=== PATIENT | female | born 1950 | race Caucasian/White ===

== ENCOUNTER 2018-09-11 11:52 | Day surgery (SDC) | payer BC, SELFPAY ==
[2018-09-11 12:06] VITALS: BP 115/67; PULSE 63; RESP 16; TEMP 37.2; O2SAT 98
[2018-09-11] MEDS: Lidocaine 2% Multi-Dose 50 ML VIAL (12:56)
--- NOTE | 2018-09-11 13:13 | W.PM.DSUDISC ---
Discharge Plan Disposition Patient Disposition: HOME Condition: Improving Discharge Details Reason For Visit: (L) RING TRIGGER FINGER Attending Provider: Javier Estrada Primary Care Provider: Karla Ricardo Home Meds and New Rx's Prescriptions: No Action ibuprofen 600 mg tablet 600 mg PO TID PRN (Reason: pain) Qty: 30 RF: 0 flaxseed oil 1,000 MG capsule 1,000 mg PO DAILY RF: 0 lactobacillus combo no.11 [Probiotic] 1 EACH capsule, sprinkle 1 ea PO BID RF: 0 penciclovir [Denavir] 1.5 GM cream 1 film Topical Q2H Qty: 1 RF: 1 Faye Plus 1 PO DAILY RF: 0 cranberry fruit 500 MG tablet,chewable 500 mg PO DAILY RF: 0 asjsjnajo-icnfpydr-eqh-hyalur [Joint Health] 1 EACH tablet 1 ea PO DAILY RF: 0 lorazepam 0.5 MG tablet 0.5 mg PO DAILY PRNQty: 30 RF: 1 gqoqq-ur-0-yoa-fbv-xvoipup-ast [krill oil] 1 EACH capsule 1 ea PO DAILY RF: 0 multivitamin [Daily Multi-Vitamin] 1 EACH tablet 1 ea PO DAILY RF: 0 fseswrjzsqxr-kfdf-cnt C-B.coag [Azo Urinary Tract Health] 1 EACH tablet 1 ea PO DAILY RF: 0 Discharge Instructions Additional Instructions: KEEP YOUR LEFT HAND ELEVATED ABOVE HEART LEVEL NEEDED TO HELP CONTROL PAIN AND SWELLING. EXERCISE YOUR FINGERS COMFORT ALLOWS. EXPECT A SMALL AMOUNT OF BLOODY DRAINAGE ON THE GAUZE BANDAGES. FOR SHOWERING TOMORROW, COVER YOUR HAND WITH A PLASTIC BAG AND A RUBBER BAND ABOUT THE FOREARM TO KEEP THE BANDAGES DRY. ON 09/23/18, YOU MAY REMOVE ALL OF YOUR BANDAGES AND GET YOUR INCISION WET IN THE SHOWER WITH SOAP AND WATER. GENTLY PAT THE STITCH DRY AND COVER YOUR WOUND WITH A BANDAID. RESUME NORMAL TOLERATED. TAKE TYLENOL, ADVIL OR ALEVE FOR ANY DISCOMFORT. FOLLOW-UP WITH DR. ESTRADA IN 1 WEEK FOR STITCH REMOVAL. Activity:: Elevate Remove Dressings/Wound Care:: 48 hours Shower/Bathe:: 48 hours Diet:: As Tolerated Discharge Orders Discharge Orders: Discharge Order (Routine); Ordered 09/11/18 Ordered By: Javier Estrada
--- NOTE | 2018-09-11 13:23 | PDOC.DSDIS_ITS ---
Discharge Plan Disposition Patient Disposition: HOME Condition: Improving Discharge Details Reason For Visit: (L) RING TRIGGER FINGER Attending Provider: Javier Estrada Primary Care Provider: Karla Ricardo Home Meds and New Rx's Prescriptions: No Action ibuprofen 600 mg tablet 600 mg PO TID PRN (Reason: pain) Qty: 30 RF: 0 flaxseed oil 1,000 MG capsule 1,000 mg PO DAILY RF: 0 lactobacillus combo no.11 [Probiotic] 1 EACH capsule, sprinkle 1 ea PO BID RF: 0 penciclovir [Denavir] 1.5 GM cream 1 film Topical Q2H Qty: 1 RF: 1 Faye Plus 1 PO DAILY RF: 0 cranberry fruit 500 MG tablet,chewable 500 mg PO DAILY RF: 0 npzjcywja-ohgwhlwz-bxd-hyalur [Joint Health] 1 EACH tablet 1 ea PO DAILY RF: 0 lorazepam 0.5 MG tablet 0.5 mg PO DAILY PRNQty: 30 RF: 1 trfzj-dj-8-cte-iew-grtzzpe-ast [krill oil] 1 EACH capsule 1 ea PO DAILY RF: 0 multivitamin [Daily Multi-Vitamin] 1 EACH tablet 1 ea PO DAILY RF: 0 fthamcgkvifr-dbsq-xio C-B.coag [Azo Urinary Tract Health] 1 EACH tablet 1 ea PO DAILY RF: 0 Discharge Instructions Additional Instructions: KEEP YOUR LEFT HAND ELEVATED ABOVE HEART LEVEL NEEDED TO HELP CONTROL PAIN AND SWELLING. EXERCISE YOUR FINGERS COMFORT ALLOWS. EXPECT A SMALL AMOUNT OF BLOODY DRAINAGE ON THE GAUZE BANDAGES. FOR SHOWERING TOMORROW, COVER YOUR HAND WITH A PLASTIC BAG AND A RUBBER BAND ABOUT THE FOREARM TO KEEP THE BANDAGES DRY. ON 09/23/18, YOU MAY REMOVE ALL OF YOUR BANDAGES AND GET YOUR INCISION WET IN THE SHOWER WITH SOAP AND WATER. GENTLY PAT THE STITCH DRY AND COVER YOUR WOUND WITH A BANDAID. RESUME NORMAL TOLERATED. TAKE TYLENOL, ADVIL OR ALEVE FOR ANY DISCOMFORT. FOLLOW-UP WITH DR. ESTRADA IN 1 WEEK FOR STITCH REMOVAL. Activity:: Elevate Remove Dressings/Wound Care:: 48 hours Shower/Bathe:: 48 hours Diet:: As Tolerated Discharge Orders Discharge Orders: Discharge Order (Routine); Ordered 09/11/18 Ordered By: Javier Estrada
--- NOTE | 2018-09-11 15:03 | ROE_ITS ---
DATE OF PROCEDURE: September 11, 2018 PREOPERATIVE DIAGNOSIS: Trigger finger left ring finger. POSTOPERATIVE DIAGNOSIS: Same. PROCEDURE: Release A-1 mateo left ring finger. SURGEON: Javier Bruce M.D. ASSEMBLER GOLD FRAME: Nurse. ANESTHETIC: 2% Lidocaine plain. PREP: ChloraPrep. INDICATIONS: This patient has her third trigger finger over the last several years. It's been quite disabling to her. She'll often awaken with the left ring finger stuck in her palm. She was anxious to have it corrected. I saw the patient in the Day Surgery holding area and reviewed the pathophysi ology with her. I confirmed that the ring finger was indeed triggering. She was quite tender over t he A-1 mateo. She had no deformity at the PIP joint to suggest associated arthritis. PROCEDURE DESCRIPTION: The patient was taken to the operating suite. Her left arm was prepped with ChloraPrep. Sterile drapes were applied. 2% Lidocaine was then used to create and anesthetic wheal over the MCP joint region. After ensuring adequate anesthesia, I made a transverse incision over the A-1 mateo. Loupe magnification was utilized. Blunt dissection was used to expose the flexor tendo n sheath. A 15 scalpel blade was then used to enter the sheath. A small amount of synovial fluid wa s encountered. The incision was then extended proximally to achieve a complete release. I then had the patient flex and extend her ring finger and she could do so fully without any catching, triggerin g or pain. The wound was then irrigated and the skin closed with a single suture of #5-0 Ethilon in a horizontal mattress fashion. Sterile bandages were applied consisting of Xeroform gauze 4x4's and a 3-inch conforming gauze bandage. The patient was taken to the recovery room in satisfactory condit ion, tolerating the procedure well.
== END 2018-09-11 13:42 | disposition home or self-care (01) ==
PROVIDERS: PCP Nurse Practitioner Adult Health; Visit Provider Orthopaedic Surgery
PROC: (CPT 26055; principal; 2018-09-11 13:00)
DX: M65.342 Trigger finger, left ring finger (principal); K21.9 Gastro-esophageal reflux disease without esophagitis
CPT/HCPCS: 26055

== ENCOUNTER 2019-02-03 09:39 | Observation (INO) | payer BC, SELFPAY ==
[2019-02-03] VITALS (23 sets, daily range): BP systolic 96–165; BP diastolic 57–96; PULSE 61–112; RESP 12–19; TEMP 36.4–37.4; O2SAT 96–100
--- NOTE | 2019-02-03 09:52 | NUR.NOTE ---
pt developed right sided abdominal pain last night 04/15 pt staes that pain is made worse by moment
--- NOTE | 2019-02-03 09:59 | DI.CT_ITS ---
SYMPTOMS/DIAGNOSIS: RLQ PAIN, ? APPENDICITIS/ACUTE PROCESS ABDOMINAL AND PELVIC CT: CT examination of the abdomen and pelvis was performed with a bolus infusion of 100 cc's of Omnipaque 350. Images obtained through the lung bases are unremarkable except for apparent bronchiectasis of the right lung base. There are vascular clips in the gallbladder fossa consistent with prior cholecystectomy. The liver, spleen and pancreas appear normal and no biliary dilatation is seen. The adrenals and kidneys are unremarkable. The abdominal aorta is of normal diameter and no major vascular abnormality is seen. No abdominal wall hernia seen. No abdominal or pelvic adenopathy seen. The SETUP TECHNICIAN structures appear intact. Note is made of a marked distended thick walled appendix with marked associated fat edema and fluid in the pericolic gutter consistent with acute retrocecal appendicitis. No gross evidence of perforation or abscess formation. CONCLUSION: Findings consistent with acute retrocecal appendicitis without evidence of abscess or perforation.
--- NOTE | 2019-02-03 10:02 | W.ED.GENAD ---
Discharge Plan Disposition Patient Disposition: [facility] INPATIENT Condition: Stable Discharge Details Chief Complaint: Abd Prob Clinical Impression: Acute appendicitis Primary Care Provider: Libertad Seo ED Provider: Marcell Pate Home Meds and New Rx's Prescriptions: No Action flaxseed oil 1,000 MG capsule 1,000 mg PO DAILY RF: 0 Probiotic 1 EACH capsule, sprinkle 1 ea PO BID RF: 0 Denavir 1.5 GM cream 1 film Topical Q2H Qty: 1 RF: 1 Faye Plus 1 PO DAILY RF: 0 cranberry fruit 500 MG tablet,chewable 500 mg PO DAILY RF: 0 Joint Health 1 EACH tablet 1 ea PO DAILY RF: 0 lorazepam 0.5 MG tablet 0.5 mg PO DAILY PRNQty: 30 RF: 1 blxho-rd-9-hbf-kun-cchtfhi-ast [krill oil] 1 EACH capsule 1 ea PO DAILY RF: 0 multivitamin [Daily Multi-Vitamin] 1 EACH tablet 1 ea PO DAILY RF: 0 Azo Urinary Tract Health 1 EACH tablet 1 ea PO DAILY RF: 0 Medical Decision Making This is a pleasant 68-year-old female with no significant past medical history except for cholecystectomy who presents for right lower abdominal pain starting last night, sharp in nature, relatively constant in consistency. She has had no associated symptoms of vomiting or diarrhea but has had mild nausea. Last meal was last night. Physical exam demonstrates notable reproducible right lower quadrant tenderness, as well as right CVA tenderness. She does have a mild rash over the right mid abdominal region, it is linear and erythematous, no vesicles, discharge, scabs, or signs or symptoms consistent with shingles. It is in the location of where her heating pad it was last night. With no clinical consistency reflecting shingles, and an exam consistent with mild burn from a heating pad, I do not think that this is the cause of her symptoms. Due to the concerning right lower quadrant abdominal pain we will get CT to rule out an acute abdominal process including appendicitis, as well as urinalysis to evaluate for infection or kidney stone. We will rehydrate, treat the patient's pain nausea, and reassess. 11:[address] scan results have returned showing evidence of acute appendicitis, questionable perforation. We have contacted Dr. Jain discussed the case with her. She will come and assessed the patient for further surgical management. Patient's pain remains controlled, vital signs are stable. 12:13 PM Apolinar has seen and assessed the patient. She agrees and the need for emergent surgery. Patient will be transferred to the OR for definitive surgical management. We have been requested to start Zosyn, 4.5 mg have been started I have extensively reviewed the treatment plan with the patient. I have addressed all patient concerns at this time. I have also discussed the plan with the admitting physician and they agree with the current assessment and plan and have agreed to assume responsibility for the patient. All parties demonstrate verbal understanding and agreement with our assessment and plan at this time. FINDINGS: Lower thorax: No acute findings. ABDOMEN: Liver: Normal. No mass. Gallbladder and bile ducts: Surgical clips in the gallbladder fossa consistent with cholecystectomy. Pancreas: Normal. No ductal dilation. Spleen: One or more accessory splenules. Adrenals: Normal. No mass. Kidneys and ureters: Normal. No hydronephrosis. Stomach and bowel: Normal. No obstruction. No mucosal thickening. Appendix: Severe retrocecal appendicitis without abscess or pneumoperitoneum. Mild nonspecific fluid in the region of the retrocecal appendix is consistent with inflammatory fluid versus occult perforation of the appendix. PELVIS: Bladder: Unremarkable as visualized. Reproductive: Unremarkable as visualized. ABDOMEN and PELVIS: Intraperitoneal space: Normal. No free air. No significant fluid collection. Bones/joints: No acute fracture. No dislocation. Soft tissues: Unremarkable. Vasculature: One or more calcified pelvic phleboliths. Calcification of the abdominal aorta and/or iliac arteries consistent with atherosclerotic vessel disease. Lymph nodes: Normal. No enlarged lymph nodes. IMPRESSION: 1. Severe retrocecal appendicitis without abscess or pneumoperitoneum. 2. Mild nonspecific fluid in the region of the retrocecal appendix is consistent with inflammatory fluid versus occult perforation of the appendix. Thank you for allowing us to participate in the care of your patient. Dictated and Authenticated by: Yousif Bennett MD 02/03/2019 11:25 AM Eastern Time ([place] & [place]) . HPI General Date/Time Provider Initiated Documentation: 02/03/19 09:52. HPI Narrative: This is a very pleasant 68-year-old female with no significant past medical history with a past surgical history of cholecystectomy who presents today for evaluation of right lower quadrant abdominal pain. Patient states that started last night. It is sharp in nature and constant in consistency. It is worse with movement and palpation. Last time she ate was yesterday afternoon. She denies any vomiting but does admit to nausea. She denies any change in bowel movements or diarrhea. She denies any hematochezia, melena, acholic stool, hematemesis, hematuria, increased urinary frequency, fever or chills, chest pain, shortness of breath, numbness, tingling, weakness, headache vision changes or drooling. She denies any history of previous symptoms like this. Patient denies any other modifying factors. No other complaints at this time. No other sick contacts. She denies any IV or illicit drug use. She denies any pertinent family history. The patient also does note the presence of a small linear rash on her right abdomen, however this was the same location as her heating pad last night. She denies any itching, burning, scabbing, or vesicles or drainage in the skin. Related Data Home Medications Medication Instructions Recorded Confirmed Probiotic 1 ea PO BID cap.sprink 11/25/15 02/03/19 flaxseed oil 1,000 mg PO DAILY 11/25/15 02/03/19 Denavir 1 film TOPICAL Q2H #1 tube 01/08/16 02/03/19 Faye Plus 1 PO DAILY 05/24/16 01/01/19 Joint Health 1 ea PO DAILY 02/13/17 02/03/19 cranberry fruit 500 mg PO DAILY tab.chew 02/13/17 02/03/19 lorazepam 0.5 mg PO DAILY PRN #30 tab 06/12/17 02/03/19 sikjt-lh-7-hxn-hfj-pduupma-ast 1 ea PO DAILY 02/09/18 02/03/19 [Krill Oil 1,000 Mg Softgel] multivitamin [Multi-Vitamin Daily] 1 ea PO DAILY 02/09/18 02/03/19 niawjorwoqrv-cekb-rxm C-B.coag 1 ea PO DAILY 04/12/18 02/03/19 [Azo Urinary Tract Health Pack] Allergies Allergy/AdvReac Type Severity Reaction Status Date / Time No Known Drug Allergies Allergy Verified 02/03/19 09:56 General Stated Complaint: Abd Prob FLORENTINO: 3 Review of Systems Review of Systems All systems reviewed & are unremarkable except as noted in HPI and below PFSH Medical History Family history of diabetes mellitus (Chronic) Osteopenia determined by x-ray (Chronic 01/01/18) Oral herpes (Chronic) Mass of soft palate (Resolved 06/11/15) Hyperlipidemia (Chronic 04/18/12) Family history of colon cancer (Chronic 11/25/15) Decreased GFR (Chronic 01/13/16) Anxiety (Chronic 08/14/14) Surgical History section (Resolved) Cholecystectomy (Resolved ~2008) Colonoscopy - IV Sedation (Resolved 06/13/17) Dilation and curettage (Resolved ~01/2018) L oropharynx mass biosy (Resolved 08/13/15) R elbow surgery (Resolved) Repair, Rotator Cuff (Resolved) TRIGGER FINGER RELEASE (Resolved 01/12/16) Trigger Finger release (Resolved 03/30/07) Social History Smoking/Tobacco Use Status: Never Alcohol Intake: current Alcohol Intake frequency: a few times a week Alcohol type: wine Drug use: Never 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 3.ENT: Atraumatic external nose and ears. Moist MM. Neck: Symmetric, trachea midline, No thyromegaly. 4.CVS: +S1/S2, No murmurs or gallops. Peripheral pulses 2+ and equal in all extremities. Brisk capillary refill in all extremities. 5.RESP: Unlabored respiratory effort. Clear to auscultation bilaterally. No wheezes rales or rhonchi 6.GI: Soft, nondistended, no organomegaly. Notable tenderness in the right lower abdominal quadrant, with some radiation towards the right upper abdominal quadrant. Negative obturator and psoas sign. Positive right CVA tenderness. Negative heel strike test. Notable pain at McBurney's point, negative Waters sign. 7.MSK: Normocephalic/Atraumatic, Extremities w/o deformity or ttp No cyanosis or clubbing, Normal movement of all extremities 8.Skin: Warm, Dry. There is evidence of a mild linear red rash on the patient's right mid abdominal quadrant, this is the location of her heating pad last night. She denies any itching, burning, or pain sensation. No evidence of vesicles. Negative Nikolsky sign. 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 Sensation grossly intact, no focal neurologic deficits. 10.Psych: (AAO) x3. Appropriate mood and affect Course Vital Signs Temperature 37.2 C 02/03/19 09:53 Pulse 90 02/03/19 09:53 Respiratory Rate 18 02/03/19 09:53 Blood Pressure 145/57 H 02/03/19 09:53 Pulse Oximetry 97 02/03/19 09:53 Temperature 37.2 C 02/03/19 09:53 Temperature Source Skin 02/03/19 09:53 Pulse 90 02/03/19 09:53 Respiratory Rate 18 02/03/19 09:53 Respiratory Effort 02/03/19 10:00 Blood Pressure 145/57 H 02/03/19 09:53 Blood Pressure Position Sitting 02/03/19 09:53 Pulse Oximetry 97 02/03/19 09:53 Oxygen Delivery Method Room Air 02/03/19 09:53 Oxygen Flow Rate 0 02/03/19 09:53 Pain Level 6 02/03/19 09:53
[2019-02-03 10:29] LABS: Abs Immature Grans 0.03 k/cumm (0.0-0.09); Absolute Eosinophil Count 0.01 k/cumm (0.0-0.7); Basophils % 0.1; Eosinophils % 0.1; HCT 41.5 % (36.0-46.0); HGB 14.1 g/dL (12.0-15.5); Immature Grans % 0.2; Lymphocytes % 5.5; Mean Corpuscular Volume 91.2 fL (80-95); Mean Platelet Volume 10.9 fL (8.0-11.0); Monocytes % 8.3; Neutrophils % 85.8; Platelet Count 178 x1000/uL (130-400); RBC 4.55 m/cumm (4.00-5.20); RBC Distribution Width 12.7 % (11.7-14.6); White Blood Cell Count 13.55 k/cumm (4.4-10.8)
[2019-02-03 10:32] LABS: Absolute Basophil Count 0.01 k/cumm (0.0-0.2); Absolute Lymphocyte Count 0.75 k/cumm (1.2-3.4); Absolute Monocyte Count 1.12 k/cumm (0.11-0.7); Absolute Neutrophil Count 11.63 k/cumm (1.2-6.7)
[2019-02-03 10:36] LABS: Lipase 253 U/L (73-393)
[2019-02-03 10:36] LABS: Bilirubin Negative (Negative); Blood Negative (Negative); Clarity Sl Cloudy; Glucose Negative (Negative); Ketones Negative (Negative); Leukocyte Esterase Negative (Negative); Nitrite Negative (Negative); Specific Gravity 1.015 (1.005-1.025); Urobilinogen 0.2 EU/dL (Up TO 0.2); pH 8.5 (5-8)
[2019-02-03 10:42] LABS: ALT 24 U/L (12-78); AST 17 U/L (15-37); Albumin 3.9 g/dL (3.4-5.0); Alkaline Phosphatase 80 U/L (46-116); BUN 18 mg/dL (7-18); Bilirubin, Total 0.6 mg/dL (0.2-1.0); CREATININE 0.99 mg/dL (0.55-1.02); Calcium 9.4 mg/dL (8.5-10.1); Chloride 104 mmol/L (98-107); Estimated GFR 56.12 (mL/min/1.73m2); Glucose 123 mg/dL (70-100); Potassium 4.3 mmol/L (3.5-5.1); Sodium 143 mmol/L (136-145); Total Protein 7.5 g/dL (6.4-8.2)
[2019-02-03] MEDS: Ondansetron 4 MG/2 ML VIAL IVP (10:49)
[2019-02-03] MEDS: MORPHine 10 MG/ML VIAL 4 MG IVP (10:49)
[2019-02-03] MEDS: Normal Saline 1,000 ML 1000 ML IV (10:49)
[2019-02-03] MEDS: Omnipaque 350 MG/ML 100 ML BTL IJ (11:03)
--- NOTE | 2019-02-03 11:25 | DI.VRAD_ITS ---
Addendum created by Yousif Bennett MD on 02/03/2019 11:27:32 AM EDT THIS REPORT CONTAINS FINDINGS THAT MAY BE CRITICAL TO PATIENT CARE. The findings were verbally communicated via telephone conference with JACK GAYLE at 11:27 AM EDT on 02/03/2019. The findings were acknowledged and understood. Initial report created on 02/03/2019 11:25:16 AM EDT EXAM: CT Abdomen and Pelvis With Contrast EXAM DATE/TIME: 02/03/2019 10:02 AM CLINICAL HISTORY: 68 years old, female; Pain; Abdominal pain; Prior surgery; Surgery type: Cholycectomy, TECHNIQUE: Imaging protocol: Axial computed tomography images of the abdomen and pelvis with intravenous contrast. Coronal and sagittal reformatted images were created and reviewed. COMPARISON: US PELVIS TRANSVAG 01/13/2017 5:38 PM FINDINGS: Lower thorax: No acute findings. ABDOMEN: Liver: Normal. No mass. Gallbladder and bile ducts: Surgical clips in the gallbladder fossa consistent with cholecystectomy. Pancreas: Normal. No ductal dilation. Spleen: One or more accessory splenules. Adrenals: Normal. No mass. Kidneys and ureters: Normal. No hydronephrosis. Stomach and bowel: Normal. No obstruction. No mucosal thickening. Appendix: Severe retrocecal appendicitis without abscess or pneumoperitoneum. Mild nonspecific fluid in the region of the retrocecal appendix is consistent with inflammatory fluid versus occult perforation of the appendix. PELVIS: Bladder: Unremarkable as visualized. Reproductive: Unremarkable as visualized. ABDOMEN and PELVIS: Intraperitoneal space: Normal. No free air. No significant fluid collection. Bones/joints: No acute fracture. No dislocation. Soft tissues: Unremarkable. Vasculature: One or more calcified pelvic phleboliths. Calcification of the abdominal aorta and/or iliac arteries consistent with atherosclerotic vessel disease. Lymph nodes: Normal. No enlarged lymph nodes. IMPRESSION: 1. Severe retrocecal appendicitis without abscess or pneumoperitoneum. 2. Mild nonspecific fluid in the region of the retrocecal appendix is consistent with inflammatory fluid versus occult perforation of the appendix. Dictated and Authenticated by: Yousif Bennett MD. Ordering:MINI Faith MD
--- NOTE | 2019-02-03 12:13 | W.PM.HP.N ---
Date of service: 02/03/19 Time of Service: 12:14 Assessment and Plan (1) Acute appendicitis: Current visit: Yes Status: Acute A\\ Acute appendicitis P\\ Laparoscopic Appendectomy possible open Risks, benefits and complications have been reviewed. Complications include but are not limited to bleeding, infection, abscess, injury to adjacent organs, missed injury, leak from the staple line, inability to complete the operation open and adverse reaction to the medications. Questions were entertained and answered to her satisfaction and she wished to proceed. No guarantees were given or implied. Qualifiers: Acute appendicitis type: with localized peritonitis Appendicitis gangrene presence: without gangrene Appendicitis perforation presence: without perforation History of Present Illness Chief Complaint: Abdominal pain Consults Consult date: 02/03/19 Requesting physician: Marcell Pate Narrative: This is a pleasant 68-year-old female with no significant past medical history except for cholecystectomy and who presented to the ER with right lower abdominal pain starting last night, sharp in nature, relatively constant in consistency. She has had no associated symptoms of vomiting or diarrhea but has had mild nausea. Last meal was last night. She had a few sips of Tonja Elvia this morning and a few sips of coffee. She denies any sick contacts. CT scan done in the ER revealed enlarged retrocecal appendix with fluid. ? small perforation. ABDOMEN: Liver: Normal. No mass. Gallbladder and bile ducts: Surgical clips in the gallbladder fossa consistent with cholecystectomy. Pancreas: Normal. No ductal dilation. Spleen: One or more accessory splenules. Adrenals: Normal. No mass. Kidneys and ureters: Normal. No hydronephrosis. Stomach and bowel: Normal. No obstruction. No mucosal thickening. Appendix: Severe retrocecal appendicitis without abscess or pneumoperitoneum. Mild nonspecific fluid in the region of the retrocecal appendix is consistent with inflammatory fluid versus occult perforation of the appendix. PELVIS: Bladder: Unremarkable as visualized. Reproductive: Unremarkable as visualized. ABDOMEN and PELVIS: Intraperitoneal space: Normal. No free air. No significant fluid collection. Bones/joints: No acute fracture. No dislocation. Soft tissues: Unremarkable. Vasculature: One or more calcified pelvic phleboliths. Calcification of the abdominal aorta and/or iliac arteries consistent with atherosclerotic vessel disease. Lymph nodes: Normal. No enlarged lymph nodes. IMPRESSION: 1. Severe retrocecal appendicitis without abscess or pneumoperitoneum. 2. Mild nonspecific fluid in the region of the retrocecal appendix is consistent with inflammatory fluid versus occult perforation of the appendix. Review of Systems Constitutional Denies fever(s) and Reports poor appetite Cardiovascular Denies chest pain, Denies chest pain at rest, Denies irregular heart rhythm, Denies palpitations, Denies dyspnea and Denies dyspnea on exertion Respiratory Denies cough, Denies dyspnea and Denies dyspnea on exertion Gastrointestinal Reports as per HPI Genitourinary Denies hematuria and Denies dysuria Endocrine Denies palpitations Hematologic/Lymphatic Denies easy bleeding and Denies easy bruising PFSH Medical History Family history of diabetes mellitus (Chronic) Osteopenia determined by x-ray (Chronic 01/01/18) Oral herpes (Chronic) Mass of soft palate (Resolved 06/11/15) Hyperlipidemia (Chronic 04/18/12) Family history of colon cancer (Chronic 11/25/15) Decreased GFR (Chronic 01/13/16) Anxiety (Chronic 08/14/14) Surgical History section (Resolved) Cholecystectomy (Resolved ~2008) Colonoscopy - IV Sedation (Resolved 06/13/17) Dilation and curettage (Resolved ~01/2018) L oropharynx mass biosy (Resolved 08/13/15) R elbow surgery (Resolved) Repair, Rotator Cuff (Resolved) TRIGGER FINGER RELEASE (Resolved 01/12/16) Trigger Finger release (Resolved 03/30/07) Social History Smoking/Tobacco Use Status: Never Alcohol Intake: current Alcohol Intake frequency: a few times a week Alcohol type: wine Drug use: Never 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[employer] Procedure Working smoke detector in home: Yes Fire extinguisher in home: Yes Carbon monox detector in home: Yes Do you feel safe at home: Yes Do you feel safe in your relationship?: Yes History History 2 Para Hx # Term Pregnancies Multiple births Hx # Pregnancies Ectopic pregnancies AB induced Hx Number of Living Children 2 AB spontaneous Meds Home Medications Medication Instructions Recorded Confirmed Type Probiotic 1 ea PO BID cap.sprink 11/25/15 02/03/19 History flaxseed oil 1,000 mg PO DAILY 11/25/15 02/03/19 History Denavir 1 film TOPICAL Q2H #1 tube 01/08/16 02/03/19 History Faye Plus 1 PO DAILY 05/24/16 01/01/19 History Joint Health 1 ea PO DAILY 02/13/17 02/03/19 History cranberry fruit 500 mg PO DAILY tab.chew 02/13/17 02/03/19 History lorazepam 0.5 mg PO DAILY PRN #30 tab 06/12/17 02/03/19 History lmsef-hr-8-wrl-isd-cavdqkg-ast 1 ea PO DAILY 02/09/18 02/03/19 History [Krill Oil 1,000 Mg Softgel] multivitamin [Multi-Vitamin Daily] 1 ea PO DAILY 02/09/18 02/03/19 History vczsaxppqtiy-vfro-xni C-B.coag 1 ea PO DAILY 04/12/18 02/03/19 History [Azo Urinary Tract Health Pack] Allergies Allergy/AdvReac Type Severity Reaction Status Date / Time No Known Drug Allergies Allergy Verified 02/03/19 09:56 Exam HENMT Head: normocephalic and atraumatic Eyes Pupils: PERRL Resp Effort & Inspection: normal respiratory effort Auscultation: clear to auscultation bilaterally Cardio Rate: regular rate Rhythm: regular rhythm Heart Sounds: no click, no gallops and no murmurs GI Inspection: normal to inspection Palpation: soft, no hepatosplenomegaly and tender in the RLQ (+guarding, no rebound) Auscultation: normal bowel sounds Results Labs : 02/03/19 10:16 02/03/19 10:16 Laboratory Results - last 24 hr 02/03/19 02/03/19 02/03/19 10:16 10:16 10:16 WBC 13.55 H RBC 4.55 Hgb 14.1 Hct 41.5 MCV 91.2 MCH 31.0 MCHC 34.0 RDW 12.7 Plt Count 178 MPV 10.9 Immature Gran % 0.2 Neutrophils % 85.8 Lymphocytes % 5.5 Monocytes % 8.3 Eosinophils % 0.1 Basophils % 0.1 Absolute Neutrophils 11.63 H Absolute Lymphocytes 0.75 L Absolute Monocytes 1.12 H Absolute Eosinophils 0.01 Absolute Basophils 0.01 Sodium 143 Potassium 4.3 Chloride 104 Carbon Dioxide 29.0 Anion Gap 10.0 BUN 18 Creatinine 0.99 Estimated GFR/1.73 m2 56.12 Glucose 123 H Calcium 9.4 Total Bilirubin 0.6 AST 17 ALT 24 Alkaline Phosphatase 80 Total Protein 7.5 Albumin 3.9 Lipase 253 Urine Color Urine Clarity Urine pH Ur Specific [place] Urine Protein Urine Ketones Urine Blood Urine Nitrite Urine Bilirubin Urine Urobilinogen Ur Leukocyte Esterase Urine Glucose 02/03/19 10:27 WBC RBC Hgb Hct MCV MCH MCHC RDW Plt Count MPV Immature Gran % Neutrophils % Lymphocytes % Monocytes % Eosinophils % Basophils % Absolute Neutrophils Absolute Lymphocytes Absolute Monocytes Absolute Eosinophils Absolute Basophils Sodium Potassium Chloride Carbon Dioxide Anion Gap BUN Creatinine Estimated GFR/1.73 m2 Glucose Calcium Total Bilirubin AST ALT Alkaline Phosphatase Total Protein Albumin Lipase Urine Color Yellow Urine Clarity Sl cloudy Urine pH 8.5 H Ur Specific [place] 1.015 Urine Protein Negative Urine Ketones Negative Urine Blood Negative Urine Nitrite Negative Urine Bilirubin Negative Urine Urobilinogen 0.2 Ur Leukocyte Esterase Negative Urine Glucose Negative Last Vital Signs Temp 99.0 F 02/03/19 09:53 Pulse 90 02/03/19 09:53 Resp 18 02/03/19 09:53 BP 145/57 H 02/03/19 09:53 Pulse Ox 97 02/03/19 09:53
[2019-02-03] MEDS: Lactated Ringers 1,000 ML 75 ML IV (13:11)
--- NOTE | 2019-02-03 13:11 | ROE_ITS ---
Date of service: 02/03/19 Time of Service: 13:59 Operative Note DATE OF PROCEDURE: 02/03/19 PRE-OP DIAGNOSIS: Acute appendicitis POST-OP DIAGNOSIS: same PROCEDURE: Laparoscopic Appendectomy SURGEON: Diamond Torres BALLING HEAD TENDER: Pj Cook ANESTHESIA: USAMAA (Aleyda Flores, COSTUME TECHNICIAN/ ASA 2E) ESTIMATED BLOOD LOSS: 50 PATHOLOGY: other (Appendix) COMPLICATIONS: None Patient was transported to: PACU Patient's condition: stable Implants: None Indications: Ms. Maza is a pleasant 68-year-old female who started having abdominal pain yesterday evening. This morning she could not stand the pain anymore and came to the emergency department. Workup in the emergency department showed a slightly increased white count of 13,000 and a CAT scan revealed an enlarged appendix with inflammatory changes as well as some nonspecific fluid within the abdomen concerning for may be a microperforation. Risks, benefits, complications were reviewed with the patient and she wished to proceed. No guarantees were given or implied. Findings: Acute appendicitis with serous fluid within the abdomen no signs of microperforation. There were also adhesions of the omentum noted to the old C- section scar. Procedure Description: After informed consent was obtained the patient was taken to the operating room placed in the supine position SCDs were applied as well as monitors. A timeout was done. The patient was then placed under general anesthesia and intubated without any difficulty. Next a Cooley catheter was placed in a standard surgical fashion. At this point the abdomen was prepped and draped in a sterile surgical fashion with chlorhexidine. A second timeout was done and the patient's name, date of , operation to be performed, DVT prophylaxis, antibiotic given, and fire risk was assessed. Percent lidocaine was mixed 50-50 with Marcaine with epinephrine. The mixture was injected into the dermis just above the umbilicus. A small 5 mm incision was made with an 11 blade. The skin was grasped with penetrating towel clamps on either side of the incision and then using a Visiport a 5 mm port was placed under direct visualization into the abdomen. The abdomen was insufflated and adhesions of omentum up to the abdominal wall along the old scar were identified. Local anesthetic was then injected just above the pubic symphysis just to the right of midline. A small 5 mm incision was made with an 11 blade and another 5 mm port was placed under direct visualization into the abdomen. The local anesthetic was then injected in the right upper quadrant area and a 10 mm incision was made with an 11 blade. A 11 mm port was then placed under direct visualization. The patient's bed was then turned to the left head down allowing me to sweep of the small bowel out of the right lower quadrant. The cecum was gently grasped and the appendix was identified. The appendix was grasped at the tip and pulled up allowing me to visualize the junction with the cecum. Using the laparoscopic LigaSure the mesoappendix was transected. Using a straight laparoscopic stapler the appendix was stapled at the junction with the cecum. The appendix was then placed into an Endo Catch bag and removed through the 11 mm port site. The port was placed back into the abdomen and the staple line was identified. There was a small amount of bleeding noted and this was stopped using the LigaSure. The abdomen was then irrigated with 500 cc of warm normal saline. The effluent was clear. The staple line was inspected one more time and no bleeding was identified at this point. Once all the fluid was suctioned out of the abdomen 20 cc of the local anesthetic was injected above the liver bed to hopefully help with postoperative shoulder pain. The 2 5 mm ports were then removed under direct visualization and no bleeding was noted from the fascia. The insufflation was stopped and the 11 mm port was removed. The 11 mm port site fascia was closed with a 0 Vicryl [id number] suture. The skin was then closed with 4-0 Vicryl. The skin was cleaned and dried and skin affix was applied. The patient was woken up extubated and taken back to recovery room in stable condition. There were no immediate complications. Sponge instrument needle counts were correct at the end of the case x2.
[2019-02-03] MEDS: Lidocaine 1% Pres-Free 5 ML VIAL (13:29)
--- NOTE | 2019-02-03 13:40 | APP_PTH ---
PATIENT: Kinga Maza LOC: [id number] AGE/SX: 68/F ROOM: RE02/03/[address]: Diamond Torres MD : [id number] BED: A DIS: 02/04/2019 SPEC #: [id number] RECD: 02/04/19 12:49 STATUS: MONTEZ REQ #: [id number] RENE: 02/03/19 13:[address]: Diamond Torres DEPT: Surgical Specimen RECD BY: Milena Garber ENTERED: 02/04/19 12:49 SP TYPE: Appendix OTHR DR: Libertad Seo APRN Tissues: 1 - APPENDIX NOT INCIDENTAL Procedures: GROSS AND MICRO LEVEL 3 Comments: [id number]
--- NOTE | 2019-02-03 14:53 | NUR.NOTE ---
Nursing Note: Pt A&Ox3, VSS, see worklist. HR reg, LS clear. Pt voice is hoarse, keeps clearing throat. 3 trochar sites on abd intact.
[2019-02-03] MEDS: DEXTROSE 5%-0.45% SALINE 1,000 ML 80 ML IV (14:59)
[2019-02-03] MEDS: PIPERACILLIN/TAZO 3.375 GM in Normal Saline 50 ML IVPB (17:31)
[2019-02-03] MEDS: HYDROcodone 5/Acetaminophen 325 TAB PO (17:51)
[2019-02-03] MEDS: Ketorolac 15 MG/ML VIAL IVP (19:55)
[2019-02-03] MEDS: Acetaminophen 325 MG TAB 650 MG PO (22:10)
[2019-02-04] MEDS: PIPERACILLIN/TAZO 3.375 GM in Normal Saline 50 ML IVPB
[2019-02-04] MEDS: Ketorolac 15 MG/ML VIAL IVP ×2 (02:30→08:02)
[2019-02-04] MEDS: DEXTROSE 5%-0.45% SALINE 1,000 ML 80 ML IV (03:26)
[2019-02-04 03:35] VITALS: BP 102/60; PULSE 60; RESP 17; TEMP 36.8; O2SAT 97
[2019-02-04] MEDS: Acetaminophen 325 MG TAB 650 MG PO (04:28)
[2019-02-04 07:54] VITALS: BP 101/62; PULSE 52; RESP 16; TEMP 35.9; O2SAT 96
[2019-02-04] MEDS: Normal Saline Flush 10 ML SYR IVP (08:01)
--- NOTE | 2019-02-04 08:04 | W.PM.PROGNOT ---
Date of Service Date of service: 02/04/19 Time of Service: 08:04 Assessment and Plan (1) Acute appendicitis: Current visit: Yes Status: Acute POD #1 s/p laparoscopic appendectomy Tolerated clear liquids, she will be getting a regular tray for breakfast. Pain is well controlled. No fevers, nausea or vomiting. Encouraged her to ambulate after breakfast. Disposition: D/C home later today if tolerating regular diet. Qualifiers: Acute appendicitis type: with localized peritonitis Appendicitis gangrene presence: without gangrene Appendicitis perforation presence: without perforation Appendicitis abscess presence: Subjective Interval history since last seen: Feeling pretty good. Some area's of my stomach are sore, but that is to be expected. Denies fevers, chills, nausea or vomiting. She reports that she tolerated clear liquids last night. Exam Const General: cooperative, healthy appearing and comfortable Orientation: alert and oriented x3 GI Inspection: normal to inspection and incision (no erythema, swelling or ecchymosis.) Palpation: soft, no guarding and tender in the RLQ Auscultation: hypoactive bowel sounds Objective Objective Clinical Data: Abnormal lab results 02/03/19 02/03/19 02/03/19 Range/Units 10:16 10:16 10:27 WBC 13.55 H (4.4-10.8) k/cumm Absolute Neutrophils 11.63 H (1.2-6.7) k/cumm Absolute Lymphocytes 0.75 L (1.2-3.4) k/cumm Absolute Monocytes 1.12 H (0.11-0.7) k/cumm Glucose 123 H (70-100) mg/dL Urine pH 8.5 H (5-8) Vital Signs Temperature 35.9 C L 02/04/19 07:54 Temperature Source Tympanic 02/04/19 07:54 Pulse 52 L 02/04/19 07:54 Pulse Rhythm Regular 02/04/19 00:00 Respiratory Rate 16 02/04/19 07:54 Respiratory Effort Non-Labored 02/04/19 00:00 Respiratory Depth Normal 02/04/19 00:00 Respiratory Pattern Normal 02/04/19 00:00 Blood Pressure 101/62 02/04/19 07:54 Blood Pressure Mean 83 02/03/19 12:54 Blood Pressure Position Sitting 02/03/19 09:53 Pulse Oximetry 96 02/04/19 07:54 Respiratory End-tidal CO2 30 02/03/19 14:32 Oxygen Delivery Method Room Air 02/04/19 07:54 Oxygen Flow Rate 0 02/04/19 07:54 Pain Level 2 02/04/19 08:02 Intake & Output 02/03/19 02/04/19 02/04/19 18:59 06:59 18:59 Intake Total 2520 / 3928 1408 / 3928 Output Total 1250 / 2450 1200 / 2450 Balance 1270 / 1478 208 / 1478 Weight 59.24 kg Intake: IV 2050 / 3048 998 / 3048 Oral 470 / 880 410 / 880 Output: Urine 1250 / 2450 1200 / 2450 Other: Urine Color Light Annabella Yellow Urine Appearance Clear Clear Urine Odor None Normal Comment voided in hat Emesis Description None Voiding Methods Bedside Commode Toilet Laboratory Results WBC 13.55 k/cumm (4.4-10.8) H 02/03/19 10:16 RBC 4.55 m/cumm (4.00-5.20) 02/03/19 10:16 Hgb 14.1 g/dL (12.0-15.5) 02/03/19 10:16 Hct 41.5 % (36.0-46.0) 02/03/19 10:16 MCV 91.2 fL (80-95) 02/03/19 10:16 MCH 31.0 pg (27.0-33.0) 02/03/19 10:16 MCHC 34.0 g/dL (32.0-36.0) 02/03/19 10:16 RDW 12.7 % (11.7-14.6) 02/03/19 10:16 Plt Count 178 x1000/uL (130-400) 02/03/19 10:16 MPV 10.9 fL (8.0-11.0) 02/03/19 10:16 Immature Gran % 0.2 02/03/19 10:16 Neutrophils % 85.8 02/03/19 10:16 Lymphocytes % 5.5 02/03/19 10:16 Monocytes % 8.3 02/03/19 10:16 Eosinophils % 0.1 02/03/19 10:16 Basophils % 0.1 02/03/19 10:16 Absolute Neutrophils 11.63 k/cumm (1.2-6.7) H 02/03/19 10:16 Absolute Lymphocytes 0.75 k/cumm (1.2-3.4) L 02/03/19 10:16 Absolute Monocytes 1.12 k/cumm (0.11-0.7) H 02/03/19 10:16 Absolute Eosinophils 0.01 k/cumm (0.0-0.7) 02/03/19 10:16 Absolute Basophils 0.01 k/cumm (0.0-0.2) 02/03/19 10:16 Sodium 143 mmol/L (136-145) 02/03/19 10:16 Potassium 4.3 mmol/L (3.5-5.1) 02/03/19 10:16 Chloride 104 mmol/L (98-107) 02/03/19 10:16 Carbon Dioxide 29.0 mmol/L (21.0-32.0) 02/03/19 10:16 Anion Gap 10.0 mmol/L (3-11) 02/03/19 10:16 BUN 18 mg/dL (7-18) 02/03/19 10:16 Creatinine 0.99 mg/dL (0.55-1.02) 02/03/19 10:16 Estimated GFR/1.73 m2 56.12 (mL/min/1.73m2) 02/03/19 10:16 Glucose 123 mg/dL (70-100) H 02/03/19 10:16 Calcium 9.4 mg/dL (8.5-10.1) 02/03/19 10:16 Total Bilirubin 0.6 mg/dL (0.2-1.0) 02/03/19 10:16 AST 17 U/L (15-37) 02/03/19 10:16 ALT 24 U/L (12-78) 02/03/19 10:16 Alkaline Phosphatase 80 U/L (46-116) 02/03/19 10:16 Total Protein 7.5 g/dL (6.4-8.2) 02/03/19 10:16 Albumin 3.9 g/dL (3.4-5.0) 02/03/19 10:16 Lipase 253 U/L (73-393) 02/03/19 10:16 Urine Color Yellow (Yellow) 02/03/19 10:27 Urine Clarity Sl cloudy 02/03/19 10:27 Urine pH 8.5 (5-8) H 02/03/19 10:27 Ur Specific [place] 1.015 (1.005-1.025) 02/03/19 10:27 Urine Protein Negative mg/dL (Negative) 02/03/19 10:27 Urine Ketones Negative mg/dL (Negative) 02/03/19 10:27 Urine Blood Negative (Negative) 02/03/19 10:27 Urine Nitrite Negative (Negative) 02/03/19 10:27 Urine Bilirubin Negative (Negative) 02/03/19 10:27 Urine Urobilinogen 0.2 EU/dL (Up TO 0.2) 02/03/19 10:27 Ur Leukocyte Esterase Negative (Negative) 02/03/19 10:27 Urine Glucose Negative mg/dL (Negative) 02/03/19 10:27
[2019-02-04 12:07] VITALS: BP 108/61; PULSE 59; RESP 17; TEMP 36.2; O2SAT 99
--- NOTE | 2019-02-04 13:20 | W.PM.DS.N ---
Date of service: 02/04/19 Time of Service: 13:20 DS: Diagnosis Discharge Diagnosis (1) Acute appendicitis: Status: Acute (2) S/P laparoscopic appendectomy: Status: Acute Discharge Plan Disposition Patient Disposition: HOME Condition: Stable Discharge Details Reason For Visit: ACUTE APPENDICITIS Admit Date/Time: 02/03/19 14:03 Admit Provider: Diamond Torres Attending Provider: Diamond Torres Primary Care Provider: Libertad Seo Hospital Course Hospital Course: Ms. Maza is a pleasant 68 year old female who was seen in the ER on 02/03/19 with diagnosis of acute appendicitis. She underwent successful Laparoscopic Appendectomy on 02/03/19. She was started on clear liquid diet on the evening of surgery and did well. On POD #1 she was started on a regular diet. She ate breakfast and lunch without N/V or increased pain. She has been afebrile since surgery. Patient is discharged home Home Meds and New Rx's Prescriptions: New acetaminophen 325 mg capsule 650 mg PO Q6H PRN (Reason: fever or pain) Qty: 30 RF: 0 ibuprofen 600 mg tablet 600 mg PO QID PRN (Reason: fever or pain) Qty: 30 RF: 0 Continued flaxseed oil 1,000 MG capsule 1,000 mg PO DAILY RF: 0 Probiotic 1 EACH capsule, sprinkle 1 ea PO BID RF: 0 Denavir 1.5 GM cream 1 film Topical Q2H Qty: 1 RF: 1 Faye Plus 1 PO DAILY RF: 0 cranberry fruit 500 MG tablet,chewable 500 mg PO DAILY RF: 0 Joint Health 1 EACH tablet 1 ea PO DAILY RF: 0 lorazepam 0.5 MG tablet 0.5 mg PO DAILY PRNQty: 30 RF: 1 cchtz-au-7-unj-lrb-ppshtmm-ast [krill oil] 1 EACH capsule 1 ea PO DAILY RF: 0 multivitamin [Daily Multi-Vitamin] 1 EACH tablet 1 ea PO DAILY RF: 0 Azo Urinary Tract Health 1 EACH tablet 1 ea PO DAILY RF: 0 Discharge Instructions Instructions: Laparoscopic Appendectomy (DC) Additional Instructions: Activity at Home after surgery: 1. Make sure you walk outside at least 4 times per day 2. You should be able to climb a flight of stairs 3. No driving while in pain or taking pain medications 4. No strenuous activity or heavy lifting for 2 weeks (laparoscopic surgery) Diet, Nutrition, & wound healin. Avoid alcohol until after you are recovered from your surgery 2. Make sure to eat plenty of lean protein (meat, fish, eggs, cottage cheese, beans) 3. Eat a variety of fruits and vegetables. Eat plenty of high fiber foods to avoid constipation. 4. Drink plenty of liquids to stay hydrated and avoid constipation Pain Medications: 1. Alternate Tylenol 650 mg and Ibuprofen 600 mg every 3 hours For Constipation: 1. Take Milk of Magnesia or MiraLax as needed for constipation Other: 1. You may shower daily. Do not scrub the incisions 2. Do not soak the incisions for 1 week 3. You may alternate ice and heat as needed for pain and swelling Wound Care: 1. Keep the incisions clean and dry Please call our office if you develop: 1. Fevers >101.5 2. Nausea or Vomiting 3. Worsening pain 4. Redness and thick discharge from the wounds If after hours please call the Hospital at and ask to speak to the on-call surgeon Stand Alone Forms: Nursing Discharge Form Referrals: Diamond Torres MD [ [facility] STAFF PHYSICIAN] - Activity:: No lifting, pushing or pulling >20 lb x 2 weeks Equipment/Supplies:: No Equipment Needed Diet:: As Tolerated Discharge Orders Discharge Orders: Discharge Order (Routine); Ordered 02/04/19 Ordered By: Diamond Torres Exam Resp Effort & Inspection: normal respiratory effort Auscultation: clear to auscultation bilaterally Cardio Rate: regular rate Rhythm: regular rhythm Heart Sounds: no gallops, no murmurs and no rubs GI Inspection: normal to inspection and incision (c/d/i) Palpation: soft and tender (apprpriate for POD #1 around incisions.) Auscultation: normal bowel sounds Abdomen image: 1. 2. 3. DS: Data Vitals/I&O Vitals and I&O: Vital Signs Temperature 97.2 F L 02/04/19 12:07 Temperature Source Tympanic 02/04/19 12:07 Pulse 59 L 02/04/19 12:07 Pulse Rhythm Regular 02/04/19 07:45 Respiratory Rate 17 02/04/19 12:07 Respiratory Effort Non-Labored 02/04/19 07:45 Respiratory Depth Normal 02/04/19 07:45 Respiratory Pattern Normal 02/04/19 07:45 Blood Pressure 108/61 02/04/19 12:07 Blood Pressure Mean 83 02/03/19 12:54 Blood Pressure Position Sitting 02/03/19 09:53 Pulse Oximetry 99 02/04/19 12:07 Respiratory End-tidal CO2 30 02/03/19 14:32 Oxygen Delivery Method Room Air 02/04/19 12:07 Oxygen Flow Rate 0 02/04/19 12:07 Pain Level 2 02/04/19 12:07 Comment 02/04/19 12:07 Intake & Output 02/03/19 02/04/19 02/04/19 23:59 11:59 23:59 Intake Total 3240 / 3240 808 / 808 Output Total 1850 / 1850 600 / 600 Balance 1390 / 1390 208 / 208 Intake: IV 2770 / 2770 278 / 278 Oral 470 / 470 530 / 530 Output: Urine 1850 / 1850 600 / 600 Other: Urine Color Yellow Yellow Urine Appearance Clear Clear Urine Odor None Normal Comment voided in hat Emesis Description None Voiding Methods Toilet Toilet [facility] Medical History Acute appendicitis (Acute) Family history of diabetes mellitus (Chronic) Osteopenia determined by x-ray (Chronic 01/01/18) Oral herpes (Chronic) Mass of soft palate (Resolved 06/11/15) Hyperlipidemia (Chronic 04/18/12) Family history of colon cancer (Chronic 11/25/15) Decreased GFR (Chronic 01/13/16) Anxiety (Chronic 08/14/14) Surgical History S/P laparoscopic appendectomy (Acute ~02/03/19) section (Resolved) Cholecystectomy (Resolved ~2008) Colonoscopy - IV Sedation (Resolved 06/13/17) Dilation and curettage (Resolved ~01/2018) L oropharynx mass biosy (Resolved 08/13/15) R elbow surgery (Resolved) Repair, Rotator Cuff (Resolved) TRIGGER FINGER RELEASE (Resolved 01/12/16) Trigger Finger release (Resolved 03/30/07) Family History Mother Myocardial infarction Breast cancer Diabetes Heart disease Hyperlipidemia Hypertension Father Family history of colon cancer Hyperlipidemia Hypertension Sister No problems noted. Sister No problems noted. 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
--- NOTE | 2019-02-04 13:25 | DSE_ITS ---
Date of service: 02/04/19 Time of Service: 13:20 DS: Diagnosis Discharge Diagnosis (1) Acute appendicitis: Status: Acute (2) S/P laparoscopic appendectomy: Status: Acute Discharge Plan Disposition Patient Disposition: HOME Condition: Stable Discharge Details Reason For Visit: ACUTE APPENDICITIS Admit Date/Time: 02/03/19 14:03 Admit Provider: Diamond Torres Attending Provider: Diamond Torres Primary Care Provider: Libetrad Seo Hospital Course Hospital Course: Ms. Maza is a pleasant 68 year old female who was seen in the ER on 02/03/19 with diagnosis of acute appendicitis. She underwent successful Laparoscopic Appendectomy on 02/03/19. She was started on clear liquid diet on the evening of surgery and did well. On POD #1 she was started on a regular diet. She ate breakfast and lunch without N/V or increased pain. She has been afebrile since surgery. Patient is discharged home Home Meds and New Rx's Prescriptions: New acetaminophen 325 mg capsule 650 mg PO Q6H PRN (Reason: fever or pain) Qty: 30 RF: 0 ibuprofen 600 mg tablet 600 mg PO QID PRN (Reason: fever or pain) Qty: 30 RF: 0 Continued flaxseed oil 1,000 MG capsule 1,000 mg PO DAILY RF: 0 Probiotic 1 EACH capsule, sprinkle 1 ea PO BID RF: 0 Denavir 1.5 GM cream 1 film Topical Q2H Qty: 1 RF: 1 Faye Plus 1 PO DAILY RF: 0 cranberry fruit 500 MG tablet,chewable 500 mg PO DAILY RF: 0 Joint Health 1 EACH tablet 1 ea PO DAILY RF: 0 lorazepam 0.5 MG tablet 0.5 mg PO DAILY PRNQty: 30 RF: 1 caxxo-is-4-xpz-qls-otllzno-ast [krill oil] 1 EACH capsule 1 ea PO DAILY RF: 0 multivitamin [Daily Multi-Vitamin] 1 EACH tablet 1 ea PO DAILY RF: 0 Azo Urinary Tract Health 1 EACH tablet 1 ea PO DAILY RF: 0 Discharge Instructions Instructions: Laparoscopic Appendectomy (DC) Additional Instructions: Activity at Home after surgery: 1. Make sure you walk outside at least 4 times per day 2. You should be able to climb a flight of stairs 3. No driving while in pain or taking pain medications 4. No strenuous activity or heavy lifting for 2 weeks (laparoscopic surgery) Diet, Nutrition, & wound healin. Avoid alcohol until after you are recovered from your surgery 2. Make sure to eat plenty of lean protein (meat, fish, eggs, cottage cheese, beans) 3. Eat a variety of fruits and vegetables. Eat plenty of high fiber foods to avoid constipation. 4. Drink plenty of liquids to stay hydrated and avoid constipation Pain Medications: 1. Alternate Tylenol 650 mg and Ibuprofen 600 mg every 3 hours For Constipation: 1. Take Milk of Magnesia or MiraLax as needed for constipation Other: 1. You may shower daily. Do not scrub the incisions 2. Do not soak the incisions for 1 week 3. You may alternate ice and heat as needed for pain and swelling Wound Care: 1. Keep the incisions clean and dry Please call our office if you develop: 1. Fevers >101.5 2. Nausea or Vomiting 3. Worsening pain 4. Redness and thick discharge from the wounds If after hours please call the Hospital at and ask to speak to the on-call surgeon Stand Alone Forms: Nursing Discharge Form Referrals: Diamond Torres MD [ [facility] STAFF PHYSICIAN] - Activity:: No lifting, pushing or pulling >20 lb x 2 weeks Equipment/Supplies:: No Equipment Needed Diet:: As Tolerated Discharge Orders Discharge Orders: Discharge Order (Routine); Ordered 02/04/19 Ordered By: Diamond Torres Exam Resp Effort & Inspection: normal respiratory effort Auscultation: clear to auscultation bilaterally Cardio Rate: regular rate Rhythm: regular rhythm Heart Sounds: no gallops, no murmurs and no rubs GI Inspection: normal to inspection and incision (c/d/i) Palpation: soft and tender (apprpriate for POD #1 around incisions.) Auscultation: normal bowel sounds Abdomen image: 1. 2. 3. DS: Data Vitals/I&O Vitals and I&O: Vital Signs Temperature 97.2 F L 02/04/19 12:07 Temperature Source Tympanic 02/04/19 12:07 Pulse 59 L 02/04/19 12:07 Pulse Rhythm Regular 02/04/19 07:45 Respiratory Rate 17 02/04/19 12:07 Respiratory Effort Non-Labored 02/04/19 07:45 Respiratory Depth Normal 02/04/19 07:45 Respiratory Pattern Normal 02/04/19 07:45 Blood Pressure 108/61 02/04/19 12:07 Blood Pressure Mean 83 02/03/19 12:54 Blood Pressure Position Sitting 02/03/19 09:53 Pulse Oximetry 99 02/04/19 12:07 Respiratory End-tidal CO2 30 02/03/19 14:32 Oxygen Delivery Method Room Air 02/04/19 12:07 Oxygen Flow Rate 0 02/04/19 12:07 Pain Level 2 02/04/19 12:07 Comment 02/04/19 12:07 Intake & Output 02/03/19 02/04/19 02/04/19 23:59 11:59 23:59 Intake Total 3240 / 3240 808 / 808 Output Total 1850 / 1850 600 / 600 Balance 1390 / 1390 208 / 208 Intake: IV 2770 / 2770 278 / 278 Oral 470 / 470 530 / 530 Output: Urine 1850 / 1850 600 / 600 Other: Urine Color Yellow Yellow Urine Appearance Clear Clear Urine Odor None Normal Comment voided in hat Emesis Description None Voiding Methods Toilet Toilet [facility] Medical History Acute appendicitis (Acute) Family history of diabetes mellitus (Chronic) Osteopenia determined by x-ray (Chronic 01/01/18) Oral herpes (Chronic) Mass of soft palate (Resolved 06/11/15) Hyperlipidemia (Chronic 04/18/12) Family history of colon cancer (Chronic 11/25/15) Decreased GFR (Chronic 01/13/16) Anxiety (Chronic 08/14/14) Surgical History S/P laparoscopic appendectomy (Acute ~02/03/19) section (Resolved) Cholecystectomy (Resolved ~2008) Colonoscopy - IV Sedation (Resolved 06/13/17) Dilation and curettage (Resolved ~01/2018) L oropharynx mass biosy (Resolved 08/13/15) R elbow surgery (Resolved) Repair, Rotator Cuff (Resolved) TRIGGER FINGER RELEASE (Resolved 01/12/16) Trigger Finger release (Resolved 03/30/07) Family History Mother Myocardial infarction Breast cancer Diabetes Heart disease Hyperlipidemia Hypertension Father Family history of colon cancer Hyperlipidemia Hypertension Sister No problems noted. Sister No problems noted. 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
== END 2019-02-04 14:41 | disposition home or self-care (01) ==
LOC: ER 12:21 → MS 02-04 10:19 → ER 02-05 13:06 → SUR 02-05 13:06
PROVIDERS: Admitting Provider Surgery; Emergency Provider Student in an Organized Health Care Education/Training Program; PCP Nurse Practitioner; Visit Provider Surgery
PROC: 0DTJ4ZZ Resection of Appendix, Percutaneous Endoscopic Approach (ICD-10-PCS; CPT 44970; principal; 2019-02-03 12:35)
DX: K35.30 Acute appendicitis with localized peritonitis, without perforation or gangrene (principal); K66.0 Peritoneal adhesions (postprocedural) (postinfection); R10.31 Right lower quadrant pain; R11.0 Nausea; E78.5 Hyperlipidemia, unspecified; Z90.49 Acquired absence of other specified parts of digestive tract
CPT/HCPCS: 44970; 36415; 80053; 83690; 96360; 96361; 99223; 99285; NC; 74177; 81003; 85025; 88304; 99284; G0378; J1100; J1885; J2270; J2405; J2543; J3010; J3490

== ENCOUNTER 2019-04-02 16:25 | Outpatient (REF) | payer BC, SELFPAY | END 2019-04-02 16:45 | LOC: LBN 16:25 | PROVIDERS: PCP Nurse Practitioner Adult Health; Visit Provider Internal Medicine | DX: N39.0 Urinary tract infection, site not specified (principal) | CPT/HCPCS: 87077; 87086; 87186 ==

== ENCOUNTER 2019-04-26 08:44 | Outpatient (CLI) | payer BC, SELFPAY | END 2019-04-26 09:04 | PROVIDERS: PCP Nurse Practitioner Adult Health; Visit Provider Internal Medicine | DX: N39.0 Urinary tract infection, site not specified (principal) | CPT/HCPCS: 87086 ==

== ENCOUNTER 2019-05-02 00:57 | Outpatient (CLI) | payer BC, SELFPAY ==
--- NOTE | 2019-05-02 12:27 | DI.MAMMO_ITS ---
SYMPTOM/DIAGNOSIS: SCREENING, Z12.31 MAMMOGRAMS: Mammograms were interpreted according to the usual protocol including computer analysis with CAD system, tomosynthesis and C view imaging. The breasts are of moderate density with fairly symmetrical distribution of fibroglandular tissue. No dominant mass or clumped microcalcification is identified in either breast. The current examination is compared with previous examinations including 04/2018 and there has been no gross interval change in appearance in comparison with the previous studies. CONCLUSION: No specific evidence of malignancy at this time. Routine screening examinations are suggested at yearly intervals due to the family history of breast carcinoma. Category 1. Breast density, Category B. MQSA ASSESSMENT OF FINDINGS: Negative. Category 1. Patient will receive a letter notifying them of these results. BI-RADS category B. There are scattered areas of fibroglandular density.
== END 2019-05-02 01:17 ==
PROVIDERS: PCP Nurse Practitioner Adult Health; Visit Provider Obstetrics & Gynecology
DX: Z12.31 Encounter for screening mammogram for malignant neoplasm of breast (principal); Z80.3 Family history of malignant neoplasm of breast
CPT/HCPCS: 77063; 77067

== ENCOUNTER 2019-06-03 00:33 | Outpatient (CLI) | payer MEDICARE, SELFPAY ==
--- NOTE | 2019-06-11 15:00 | DI.RAD_ITS ---
SYMPTOMS/DIAGNOSIS: OSTEOPENIA, M85.88 DEXA SCAN WITH SOLE: Comparison is made with exams from 2007 and 2017. The SOLE image shows no evidence of compression fractures. The bone mineral density measurements of the lumbar spine correspond to a total T score of -1.7, in the osteopenic range. This is not significantly changed from the previous exam. There has been a 2.4% decrease when compared with 2007. The bone mineral density measurements of the left hip correspond to a total T score of -0.6 and a femoral neck T score of - 0.7, in the normal range. This is not significantly changed from the previous exam. There has been a 4.3% decrease in total bone mineral density when compared with 2007. The bone mineral density measurements of the left forearm correspond to a total T score of -3.0 and a T score of the distal third of -3.4, in the osteoporotic range. This is a slight decrease from the previous exam, but is not statistically significant. IMPRESSION: Osteoporosis of the left forearm. Osteopenia of the lumbar spine and left hip.
== END 2019-06-03 00:53 ==
PROVIDERS: PCP Nurse Practitioner Adult Health; Visit Provider Obstetrics & Gynecology
DX: M85.88 Other specified disorders of bone density and structure, other site (principal); M81.0 Age-related osteoporosis without current pathological fracture
CPT/HCPCS: 77080

== ENCOUNTER 2019-07-18 16:09 | Emergency (ER) | payer MEDICARE, OTHER, SELFPAY ==
[2019-07-18] VITALS (10 sets, daily range): BP systolic 122–133; BP diastolic 60–79; PULSE 64–80; RESP 13–19; TEMP 37; O2SAT 95–98
--- NOTE | 2019-07-18 16:16 | ED.GENADUL_ITS ---
Discharge Plan Disposition Patient Disposition: HOME Condition: Stable Discharge Details Chief Complaint: Chest Pain Clinical Impression: Chest pain Primary Care Provider: Karla Ricardo ED Provider: Yousif Quach Home Meds and New Rx's Prescriptions: Continued Denavir 1 % cream 1 applic Topical Q2H PRN (Reason: cold sores) Qty: 1 RF: 1 flaxseed oil 1,000 MG capsule 1,000 mg PO DAILY RF: 0 Probiotic 1 EACH capsule, sprinkle 1 ea PO BID RF: 0 Faye Plus 1 PO DAILY RF: 0 cranberry fruit 500 MG tablet,chewable 500 mg PO DAILY RF: 0 Joint Health 1 EACH tablet 1 ea PO DAILY RF: 0 lorazepam 0.5 MG tablet 0.5 mg PO DAILY PRNQty: 30 RF: 1 hvrue-ug-4-xqq-uso-drwvpre-ast [krill oil] 1 EACH capsule 1 ea PO DAILY RF: 0 multivitamin [Daily Multi-Vitamin] 1 EACH tablet 1 ea PO DAILY RF: 0 Discharge Instructions Instructions: Chest Pain (ED) Additional Instructions: your lab work and ekg did not show findings concerning for a heart attack at this time. It is important you follow up with your primary care provider within 1 week and discuss having stress testing if you have severe worsening pain/tightness/pressure, difficulty breathing or persistent vomit return to the emergency department for reevluation Medical Decision Making 69 yo female with hx of DM, hld, never smoker, who comes in with chest tightness. She states for the past few days has had chest tightness when she wakes up inthe morning and then improves during the day when she gets up and goes. She denies fevers, sob, falls and no prior hx of chest pain or cardiac history. She has no pain now. She has no abdominal pain or exertional pain and appears in no distress. No evidence of dvt on exam, no hypoxia or tachycardia or pleuritic pain so doubt PE at this time. NO tearing back pain and normal vascular exam so doubt dissectoin. Normal lung souns without fever or cough so doubt ptx or pna. Haert score is 3, will send troponin. Suspect gastritis vs gerd given pain is worse in the AM pt remains stable and no pain here. REassuring labs and troponin negative, given over 4 hours since symptom onset do not feel delta troponin would be of benefit. Will d/c home and advised f/u with pcp and return precautions given Differential Diagnosis Differential Diagnosis: nstemi, gerd, gastritis Lab Data Lab results reviewed: Yes I reviewed the patient's lab results. ECG Data Attestation: I personally reviewed and interpreted this ECG (s) as follows: Prior ECG tracings: not available for review Interpretation: sinus rhythm, rate of 71, pr 116, qtc 368, no acute st t wave is chemic findings HPI General Mode of arrival: ambulatory . Date/Time Provider Initiated Documentation: 07/18/19 16:12 . Limitations to Documentation: no limitations . Information obtained by: patient . History of Present Illness 69 year old F presents to the emergency department with the chief complaint of chest tightness, described as moderate, and it has been intermittent. Patient notes no other symptoms.. Patient did receive the following treatments prior to arrival, none Related Data Home Medications Medication Instructions Recorded Confirmed Probiotic 1 ea PO BID cap.sprink 11/25/15 07/18/19 flaxseed oil 1,000 mg PO DAILY 11/25/15 07/18/19 Faye Plus 1 PO DAILY 05/24/16 04/19/19 Joint Health 1 ea PO DAILY 02/13/17 07/18/19 cranberry fruit 500 mg PO DAILY tab.chew 02/13/17 07/18/19 lorazepam 0.5 mg PO DAILY PRN #30 tab 06/12/17 07/18/19 nqgyv-me-2-mqg-abs-necwfcx-ast 1 ea PO DAILY 02/09/18 07/18/19 [krill oil] multivitamin [Daily Multi-Vitamin] 1 ea PO DAILY 02/09/18 07/18/19 penciclovir 1 % topical cream 1 applic TOPICAL Q2H PRN #1 tube 03/25/19 07/18/19 Previous Rx's Medication Instructions Recorded penciclovir 1 % topical cream 1 applic TOPICAL Q2H PRN #1 tube 03/25/19 Allergies Allergy/AdvReac Type Severity Reaction Status Date / Time No Known Drug Allergies Allergy Verified 07/18/19 16:49 General FLORENTINO: 3 Review of Systems Review of Systems ROS Unobtainable: All systems reviewed & are unremarkable except as noted in HPI and below Constitutional Constitutional: Denies chills, Denies fever(s) and Denies weakness Cardiovascular Cardiovascular: Denies dyspnea Respiratory Respiratory: Denies dyspnea Gastrointestinal Gastrointestinal: Denies abdominal pain, Denies nausea and Denies vomiting Musculoskeletal Musculoskeletal: Denies joint swelling Neurologic Neurologic: Denies weakness Psychiatric Psychiatric: Denies depression [facility] Social History Smoking/Tobacco Use Status: Never Alcohol Intake: current Alcohol Intake frequency: a few times a week Alcohol type: wine Drug use: Never 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 Working smoke detector in home: Yes Fire extinguisher in home: Yes Carbon monox detector in home: Yes Do you feel safe at home: Yes Do you feel safe in your relationship?: Yes History History 2 Para Hx # Term Pregnancies Multiple births Hx # Pregnancies Ectopic pregnancies AB induced Hx Number of Living Children 2 AB spontaneous Exam Const General: no acute distress Orientation: alert HENMT Head: normal to inspection Ears: external ears normal General nose exam: external nose normal Mouth: moist mucous membranes Eyes General: appearance normal, both eyes and all related structures Neck Neck: normal visual inspection Resp Effort & Inspection: normal respiratory effort and able to speak in complete sentences Cardio Rate: regular rate Skin General skin exam: no rashes or lesions noted Neuro General: alert and oriented x3 Extrem General: normal to inspection Psych Mental Status: mental status grossly normal
[2019-07-18] MEDS: Aspirin 81 MG CHEW 324 MG CH (16:20)
[2019-07-18 16:37] LABS: Abs Immature Grans 0.01 k/cumm (0.0-0.09); Absolute Basophil Count 0.02 k/cumm (0.0-0.2); Absolute Eosinophil Count 0.07 k/cumm (0.0-0.7); Absolute Lymphocyte Count 1.26 k/cumm (1.2-3.4); Absolute Monocyte Count 0.47 k/cumm (0.11-0.7); Absolute Neutrophil Count 3.15 k/cumm (1.2-6.7); Basophils % 0.4; Eosinophils % 1.4; HCT 41.5 % (36.0-46.0); HGB 13.9 g/dL (12.0-15.5); Immature Grans % 0.2; Lymphocytes % 25.3; Mean Corp. HGB Concentration 33.5 g/dL (32.0-36.0); Mean Corpuscular Volume 89.4 fL (80-95); Mean Platelet Volume 10.6 fL (8.0-11.0); Monocytes % 9.4; Neutrophils % 63.3; Platelet Count 216 x1000/uL (130-400); RBC 4.64 m/cumm (4.00-5.20); RBC Distribution Width 12.4 % (11.7-14.6); White Blood Cell Count 4.98 k/cumm (4.4-10.8)
[2019-07-18 16:56] LABS: PTT Activated 23.2 sec (21.0-31.4); Prothrombin Time 9.6 sec (9.3-11.0)
[2019-07-18 17:01] LABS: ALT 48 U/L (14-59); AST 33 U/L (15-37); Alkaline Phosphatase 81 U/L (46-116); Anion Gap 8.6 mmol/L (3-11); BUN 23 mg/dL (7-18); Bilirubin, Total 0.5 mg/dL (0.2-1.0); CO2 27.4 mmol/L (21.0-32.0); CREATININE 1.09 mg/dL (0.55-1.02); Calcium 10.2 mg/dL (8.5-10.1); Chloride 107 mmol/L (98-107); Estimated GFR 50.07 (mL/min/1.73m2); Glucose 99 mg/dL (70-100); Lipase 128 U/L (73-393); Magnesium 2.2 mg/dL (1.8-2.4); Sodium 143 mmol/L (136-145); Total Protein 7.4 g/dL (6.4-8.2)
[2019-07-18 17:03] LABS: Troponin I < 0.05 ng/mL (0.00-0.06)
== END 2019-07-18 17:55 | disposition home or self-care (01) ==
PROVIDERS: Emergency Provider Emergency Medicine; PCP Nurse Practitioner Adult Health
DX: R07.89 Other chest pain (principal); E11.9 Type 2 diabetes mellitus without complications
CPT/HCPCS: 36415; 80053; 83690; 93005; 99284; 83735; 84484; 85025; 85610; 85730; 93010

== ENCOUNTER 2019-07-31 00:50 | Outpatient (CLI) | payer MEDICARE, SELFPAY ==
--- NOTE | 2019-07-31 08:30 | ETT_ITS ---
*[facility]* *[facility]* [address] [place] [address] Stress Electrocardiography Morteza protocol Date of study: 07/31/2019 *PATIENT PRESENTATION* Height: 123.8cm (48.8in) Blood Pressure: Weight: 59.1kg (130lb) BSA: 1.47m^2 Ordering physician: Karla Cline Impressions: Normal study after maximal exercise. Summary: 1. Stress ECG conclusions: The stress ECG is negative. The sensitivity of this test is limited by significant motion artifact. 2. Stress: The target heart rate was achieved. The heart rate response to stress is exaggerated. There is a normal resting blood pressure with an appropriate response to stress. The patient experienced no chest pain during stress. Exercise capacity is average for age. 3. Treadmill exercise testing was performed using the Morteza protocol. The patient exercised to protocol stage 2, to a maximal work rate of 7.1mets. Exercise was terminated due to fatigue. Indication: R07.9, Appropriate Use Criteria: A (Appropriate). History: REASON FOR VISIT: PT PRESENTED TO THE ED ON 07/18/19 FOR CHEST PAIN HER WORK UP WAS NEGATIVE FOR CARDIAC ETIOLOGY SHE HASN'T HAD ANY FURTHER CHEST PAIN SINCE BUT IS INTERESTED IN ETT TESTING BECAUSE OF HER POSITIVE FAMILY HX FOR ASCVD AND HER OWN HX OF HIGH CHOLESTOROL. Risk factors: Family history of coronary artery disease. Dyslipidemia. Cholesterol: 239mg/dl. HDL: 91mg/dl. LDL: 138mg/dl. Triglycerides: 83mg/dl. ALLERGIES: NO KNOWN ALLERGIES. MEDICATIONS: MVI 1 DAILY. LORAZEPAM 0.5 MG PRN. FLAXSEED OIL 1,000 MG DAILY. CRANBERRY FRUIT 500 MG DAILY. PROBIOTIC 1 BID. JOINT My-Hammer 1 DAILY. VITAMIN D 5000 DAILY. CALCIUM SUPPLEMENT 1200 MG DAILY Protocol: Morteza protocol. Baseline ECG: SINUS BRADYCARDIA. HR 54 BPM. ABNORMAL R WAVE PROGRESSION, EARLY TRANSITION. LVE BY VOLTAGE. Sinus bradycardia. Stress protocol: + +---+ + + !Stage !HR !BP (mmHg) !Comments ! + +---+ + + !Baseline supine !54 !134/82 (99) ! ! + +---+ + + !Baseline standing !61 !132/90 (104) ! ! + +---+ + + !Stage I; 1.7mph, 10degrees; 3 !145!180/100 (127)! ! !min ! ! ! ! + +---+ + + !Peak stress !160! ! ! + +---+ + + !Recovery; 1 min !130!198/78 (118) ! ! + +---+ + + !Recovery; 3 min !79 !180/82 (115) ! ! + +---+ + + !Recovery; 6 min !78 !136/80 (99) ! ! + +---+ + + !1 min !---! !Inject Regadenoson.! + +---+ + + !1 min !---! !Inject Regadenoson.! + +---+ + + * Stress results: Maximal heart rate during stress was 160bpm (105% of maximal predicted heart rate). The maximal predicted heart rate was 153bpm. The target heart rate was achieved. The heart rate response to stress is exaggerated. There is a normal resting blood pressure with an appropriate response to stress. The rate-pressure product for the peak heart rate and blood pressure was 75447sq Hg/min. The patient experienced no chest pain during stress. Exercise capacity is average for age. Stress ECG: TREADMILL PORTION OF STRESS TEST ENDED IN 5 MINUTES AND 3 SECONDS DUE TO FATIGUE EXAGERATED HEART RATE AND BLOOD PRESSURE RESPONSE TO EXERCISE MAX HR = 160 % OF TARGET = 104 NO ECTOPY APPROXIMATE METS ACHIEVED = 7.05 NO ANGINA NO SIGNIFICANT ST SEGMENT CHANGES AVERAGE FUNCTIONAL CAPACITY FOR EXERCISE. The stress ECG is negative. The sensitivity of this test is limited by significant motion artifact. Study data: Danielito Luna MD supervised and was readily available during the procedure. This study was interpreted by [facility]. Study status: Routine. Consent: The risks, benefits, and alternatives to the procedure were explained to the patient and informed consent was obtained. Procedure: Initial setup. A baseline ECG was recorded. Surface ECG leads and manual cuff blood pressure measurements were monitored. Heart sounds: Normal. Lung sounds: Normal. Treadmill exercise testing was performed using the Morteza protocol. The patient exercised to protocol stage 2, to a maximal work rate of 7.1mets. Exercise was terminated due to fatigue. Study completion: The patient tolerated the procedure well and was discharged from the lab. Discharge: The patient left the laboratory in stable condition. Birthdate: Patient birthdate: 1950. Sex: Gender: female. Study date: Study date: 07/31/2019. Study time: 00:01 AM. Signature Documentation: The Stress ECG portion of this study was interpreted by Danielito Luna MD. Electronically signed by Danielito Luan 07/31/2019 09:52
== END 2019-07-31 01:10 ==
PROVIDERS: PCP Nurse Practitioner Adult Health; Visit Provider Nurse Practitioner Adult Health
DX: R07.9 Chest pain, unspecified (principal); E78.5 Hyperlipidemia, unspecified; Z82.49 Family history of ischemic heart disease and other diseases of the circulatory system
CPT/HCPCS: 93016; 93018; 93017

== ENCOUNTER → 2019-08-15 09:31 | Outpatient (BNVA) | payer MEDICARE, SELFPAY | PROVIDERS: PCP Nurse Practitioner Adult Health; Referring Provider Nurse Practitioner Adult Health; Visit Provider Student in an Organized Health Care Education/Training Program | DX: M65.341 Trigger finger, right ring finger (principal) | CPT/HCPCS: 99213 ==

== ENCOUNTER 2019-08-15 14:33 | Outpatient (REF) | payer MEDICARE, SELFPAY | END 2019-08-15 14:53 | LOC: LBN 14:33 | PROVIDERS: PCP Nurse Practitioner Adult Health; Visit Provider Nurse Practitioner Adult Health | DX: R31.9 Hematuria, unspecified (principal); R82.998 Other abnormal findings in urine | CPT/HCPCS: 87077; 87086; 87186 ==

== ENCOUNTER 2019-09-25 06:37 | Day surgery (SDC) | payer MEDICARE, SELFPAY ==
[2019-09-25 06:44] VITALS: BP 128/68; PULSE 73; RESP 16; TEMP 36.3; O2SAT 98
--- NOTE | 2019-09-25 07:17 | W.PM.DSUDISC ---
Discharge Plan Disposition Patient Disposition: HOME Condition: Good Discharge Details Reason For Visit: Right ring finger trigger finger Attending Provider: Pablo Pete Primary Care Provider: Karla Ricardo Home Meds and New Rx's Prescriptions: New acetaminophen 500 mg tablet 500 mg PO Q6H PRN (Reason: pain) Qty: 60 RF: 2 ibuprofen 600 mg tablet 600 mg PO TID PRN (Reason: pain) Qty: 60 RF: 2 Continued fluticasone propionate [Flonase Allergy Relief] 50 mcg/actuation spray,suspension 2 spray JUSTA DAILY PRN (Reason: nasal congestion) Qty: 9.9 RF: 0 Denavir 1 % cream 1 applic Topical Q2H PRN (Reason: cold sores) Qty: 1 RF: 1 Azo Cranberry + Probiotic 250-30-50 sb-nw-ffxxvvi tablet PO RF: 0 flaxseed oil 1,000 MG capsule 1,000 mg PO DAILY RF: 0 Probiotic 1 EACH capsule, sprinkle 1 ea PO BID RF: 0 Faye Plus 1 PO DAILY RF: 0 cranberry fruit 500 MG tablet,chewable 500 mg PO DAILY RF: 0 Joint Health 1 EACH tablet 1 ea PO DAILY RF: 0 lorazepam 0.5 MG tablet 0.5 mg PO DAILY PRNQty: 30 RF: 1 multivitamin [Daily Multi-Vitamin] 1 EACH tablet 1 ea PO DAILY RF: 0 calcium carbonate [Calcium 600] 600 mg calcium (1,500 mg) Tablet 600 mg PO BID RF: 0 cholecalciferol (vitamin D3) [Vitamin D3] 5,000 unit Tablet 5,000 unit PO DAILY RF: 0 Discharge Instructions Stand Alone Forms: Juan R Vanessa Finger Release Referrals: Pablo Pete MD [ [facility] STAFF PHYSICIAN] - Activity:: Elevate Remove Dressings/Wound Care:: 72 hours Shower/Bathe:: 72 hours Diet:: As Tolerated Discharge Orders Discharge Orders: Discharge Order (Routine); Ordered 09/25/19 Ordered By: Melissa Patterson DS: Diagnosis Discharge Diagnosis (1) Trigger finger, right ring finger: Status: Acute
[2019-09-25] MEDS: Sodium Bicarbonate 50 MEQ/50 ML SYR (07:40)
--- NOTE | 2019-09-25 10:19 | W.PM.OP ---
Date of service: 09/25/19 Time of Service: 08:19 Operative Note Operative Note DATE OF PROCEDURE: 09/25/19 PRE-OP DIAGNOSIS: Right ring finger trigger finger POST-OP DIAGNOSIS: same PROCEDURE: Trigger Finger Release -right ring finger SURGEON: Pablo Pete ANESTHESIA: local ESTIMATED BLOOD LOSS: 0 PATHOLOGY: none sent COMPLICATIONS: None Patient was transported to: same day Patient's condition: stable Indications: I have seen Kinga in clinic for symptoms of a trigger finger. The catching, clicking, locking, and pain limited function. The diagnosis of trigger finger was evident. The symptoms had not responded to conservative measures. I discussed trigger finger release with the patient. I reviewed the risks of the procedure to include, but not limited to, bleeding, infection, pain, stiffness, incomplete release, damage to nerves or vessels, continued catching, recurrence. Despite these risks, the patient elected to proceed. Findings: There was a tightened A1 mateo which was released. The flexor tendons were inspected and the patient was able to move the finger without any catching, clicking, or locking. Procedure Description: Kinga was greeted in the preoperative holding area where the correct side was identified and marked. The consent was reviewed with the patient and signed. All questions were answered. Kinga was taken back to the operating room. The patient was placed into the supine position on the operating room table with the right arm on an arm board. All bony prominences were well padded. No prophylactic antibiotics were administered since this was a clean, elective hand surgical case. The right arm was then prepped with Chloraprep and draped in a standard fashion with stockinette and extremity drape. A timeout to confirm correct identity, side and site, procedure, allergies, anesthesia, and medical concerns was performed. The surgical site was marked as a longitudinal incision directly over the A1 mateo of the involved digit. This was confirmed with palpation during finger flexion. This area, overlying the metacarpal head, was then anesthetized with 1% Lidocaine. The patient tolerated this well and once the anesthetic had setup, the procedure began. A longitudinal incision was made through skin only, approximately 1cm. The deep tissues were dissected bluntly. Once the A1 mateo and flexor tendons were identified the soft tissue including neurovascular structures were retracted medially and laterally. There were no crossing structures over the A1 mateo. The proximal edge of the mateo was identified and the mateo was incised with tenotomy scissors. There was a release of the tendons once this was fully released. The tendons were then removed from the wound and inspected. Excess synovium was resected. The tendons were then returned and the patient was asked to move the finger into deep flexion and back to extension. There was no recreation of the pre-operative symptoms. The hand was then once more inspected for any A0 mateo or area of possible constriction. The wound was then irrigated and the skin was closed with a 4-0 Nylon. This was dressed with gauze and a Conform dressing. The patient tolerated the procedure well and was returned to the Same Day Surgery area in a stable condition suffering no known complication.
== END 2019-09-25 08:29 | disposition home or self-care (01) ==
PROVIDERS: PCP Nurse Practitioner Adult Health; Visit Provider Student in an Organized Health Care Education/Training Program
PROC: (CPT 26055; principal; 2019-09-25 07:30)
DX: M65.341 Trigger finger, right ring finger (principal)
CPT/HCPCS: 26055

== ENCOUNTER → 2019-10-07 09:05 | Outpatient (BNVA) | payer MEDICARE, SELFPAY | PROVIDERS: PCP Nurse Practitioner Adult Health; Referring Provider Nurse Practitioner Adult Health; Visit Provider Student in an Organized Health Care Education/Training Program | DX: Z47.89 Encounter for other orthopedic aftercare (principal); M65.341 Trigger finger, right ring finger ==

== ENCOUNTER 2019-12-07 09:40 | Outpatient (CLI) | payer MEDICARE, SELFPAY ==
[2019-12-07 10:53] LABS: ALT 26 U/L (14-59); AST 17 U/L (15-37); Albumin 3.7 g/dL (3.4-5.0); Alkaline Phosphatase 66 U/L (46-116); Anion Gap 9.4 mmol/L (3-11); BUN 27 mg/dL (7-18); Bilirubin, Total 0.7 mg/dL (0.2-1.0); CO2 28.6 mmol/L (21.0-32.0); CREATININE 0.99 mg/dL (0.55-1.02); Calcium 9.1 mg/dL (8.5-10.1); Calculated LDL 136 mg/dL (<100); Chloride 105 mmol/L (98-107); Cholesterol 247 mg/dL (<200); Estimated GFR 55.95 (mL/min/1.73m2); Glucose 90 mg/dL (74-106); HDL Cholesterol 90 mg/dL (40-60); Potassium 4.2 mmol/L (3.5-5.1); Sodium 143 mmol/L (136-145); Total Protein 6.6 g/dL (6.4-8.2); Triglyceride 108 mg/dL (<150)
== END 2019-12-07 10:00 ==
PROVIDERS: PCP Nurse Practitioner Adult Health; Visit Provider Nurse Practitioner Adult Health
DX: E78.5 Hyperlipidemia, unspecified (principal); Z83.3 Family history of diabetes mellitus
CPT/HCPCS: 36415; 80053; 80061

== ENCOUNTER → 2019-12-13 10:30 | Outpatient (BNVA) | payer MEDICARE, OTHER, SELFPAY | PROVIDERS: PCP Nurse Practitioner Adult Health; Referring Provider Nurse Practitioner Adult Health; Visit Provider Student in an Organized Health Care Education/Training Program | DX: M77.12 Lateral epicondylitis, left elbow (principal); Z87.39 Personal history of other diseases of the musculoskeletal system and connective tissue | CPT/HCPCS: 99213; L3908 ==

== ENCOUNTER → 2020-03-11 12:04 | Outpatient (BNVA) | payer MEDICARE, OTHER, SELFPAY | PROVIDERS: PCP Nurse Practitioner Adult Health; Referring Provider Nurse Practitioner Adult Health; Visit Provider Student in an Organized Health Care Education/Training Program | DX: M77.12 Lateral epicondylitis, left elbow (principal) | CPT/HCPCS: 99212 ==

== ENCOUNTER 2020-05-04 01:46 | Outpatient (CLI) | payer MEDICARE, SELFPAY ==
--- NOTE | 2020-05-04 11:00 | DI.MAMMO_ITS ---
EXAM: MG MAMMO SCREENING CLINICAL HISTORY: screening, Z12.39 TECHNIQUE: Bilateral full field digital CC and MLO mammographic images were obtained with 3D tomosyn thesis and utilizing computer aided detection (CAD). COMPARISON: Available for comparison. FINDINGS: Masses/Architectural Distortion: None seen. Microcalcifications: No suspicious pleomorphic-type are seen. Skin Thickening/Nipple Retraction: None. IMPRESSION: 1. No significant interval change with no specific features of malignancy noted. 2. Unless there is more urgent need, screening mammography is recommended, as per [employer] guidelines. BI-RADS Category 1 - Negative Breast Density - Category B - Scattered areas of fibroglandular density A negative radiographic report should not delay biopsy if a dominant or clinically suspicious mass is present. Up to ten percent of cancers are not identified on mammography. A negative report may reinforce clinical impression. Adenosis and dense breasts may obscure an underlying neoplasm. False positive reports average 6 to 10%. Patient will receive a letter notifying them of these results.
== END 2020-05-04 02:06 ==
PROVIDERS: PCP Nurse Practitioner Adult Health; Visit Provider Nurse Practitioner Adult Health
DX: Z12.31 Encounter for screening mammogram for malignant neoplasm of breast (principal)
CPT/HCPCS: 77063; 77067

== ENCOUNTER 2020-11-02 16:18 | Outpatient (REF) | payer MEDICARE, SELFPAY | END 2020-11-02 16:38 | LOC: LBN 16:18 | PROVIDERS: PCP Nurse Practitioner Adult Health; Visit Provider Nurse Practitioner Family | DX: N39.0 Urinary tract infection, site not specified (principal) | CPT/HCPCS: 87086 ==

== ENCOUNTER 2020-11-09 07:56 | Outpatient (CLI) | payer MEDICARE, SELFPAY ==
[2020-11-10 21:09] LABS: COVID-19 RT-PCR UVMMC Result Negative (Negative)
== END 2020-11-09 08:16 ==
PROVIDERS: PCP Nurse Practitioner Adult Health; Visit Provider Nurse Practitioner Adult Health
DX: Z20.828 Contact with and (suspected) exposure to other viral communicable diseases (principal)
CPT/HCPCS: U0003

== ENCOUNTER 2021-04-16 04:03 | Outpatient (CLI) | payer MEDICARE, OTHER, SELFPAY ==
[2021-04-16 08:18] LABS: HCT 38.2 % (36.0-46.0); HGB 12.8 g/dL (11.2-15.7); MCH 30.2 pg (27.0-33.0); MCHC 33.5 % (32.0-36.0); MCV 90.1 fL (80-95); MPV 10.5 fL (8.0-11.0); Platelet Count 209 10^3/uL (130-400); RBC 4.24 10^6/uL (3.93-5.22); RDW 12.3 % (11.7-14.6)
[2021-04-16 11:29] LABS: ALT 30 U/L (14-59); AST 19 U/L (15-37); Albumin 3.7 g/dL (3.4-5.0); Alkaline Phosphatase 75 U/L (46-116); Anion Gap 5.4 mmol/L (3-11); BUN 24 mg/dL (7-18); Bilirubin, Total 0.5 mg/dL (0.2-1.0); CO2 29.6 mmol/L (21.0-32.0); CREATININE 0.9 mg/dL (0.55-1.02); Calcium 9.3 mg/dL (8.5-10.1); Calculated LDL 163 mg/dL (<100); Chloride 106 mmol/L (98-107); Cholesterol 265 mg/dL (<200); Glucose 94 mg/dL (74-106); HDL Cholesterol 82 mg/dL (40-60); Potassium 4.3 mmol/L (3.5-5.1); Sodium 141 mmol/L (136-145); Total Protein 6.7 g/dL (6.4-8.2); Triglyceride 100 mg/dL (<150); Vitamin B12 1871 pg/mL (193-986)
== END 2021-04-16 04:04 | disposition home or self-care (01) ==
LOC: LBO 04:04
PROVIDERS: PCP Nurse Practitioner Adult Health; Visit Provider Nurse Practitioner Adult Health
DX: E78.5 Hyperlipidemia, unspecified (principal); K21.9 Gastro-esophageal reflux disease without esophagitis; F41.9 Anxiety disorder, unspecified; M81.0 Age-related osteoporosis without current pathological fracture; R10.32 Left lower quadrant pain; R94.4 Abnormal results of kidney function studies; E63.9 Nutritional deficiency, unspecified; D53.9 Nutritional anemia, unspecified
CPT/HCPCS: 36415; 80053; 80061; 82306; 85027; 82607; 84443

== ENCOUNTER 2021-05-17 01:22 | Outpatient (CLI) | payer MEDICARE, SELFPAY ==
--- NOTE | 2021-05-17 08:15 | DI.MAMMO_ITS ---
Exam(s) MAMMO SCREENING EXAM: MAMMO SCREENING CLINICAL HISTORY: screening,z12.39. TECHNIQUE: Bilateral full field digital CC and MLO mammographic images were obtained with 3D tomosyn thesis and utilizing computer aided detection (CAD). COMPARISON: Prior mammograms dating back to 2011, the most recent being April 2020. FINDINGS: There are no new spiculated masses nor malignant appearing microcalcification groups. There is no significant architectural distortion nor skin thickening-retraction. IMPRESSION: No radiographic evidence of malignancy. BI-RADS Category 1 - Negative Breast Density - Category C - Heterogeneously dense Breast density Category C or D implies that the patient has dense breast tissue. Dense breast tissue can make it harder to find cancer on a mammogram. Dense breast tissue is also associated with an incr eased risk of breast cancer. This information about the result of the mammogram report was provided to the patient to raise their awareness. Use this report when you speak with the patient about their risks for breast cancer, which includes their family history. At that time, you may recommend additional screening tests (Ultrasoun d or MRI) as these tests may add significant information. A negative radiographic report should not delay biopsy if a dominant or clinically suspicious mass is present. Up to ten percent of cancers are not identified on mammography. A negative report may reinforce clinical impression. Adenosis and dense breasts may obscure an underlying neoplasm. False positive reports average 6 to 10%. Patient will receive a letter notifying them of these results.
== END 2021-05-17 01:42 ==
PROVIDERS: PCP Nurse Practitioner Adult Health; Visit Provider Nurse Practitioner Adult Health
DX: Z12.31 Encounter for screening mammogram for malignant neoplasm of breast (principal); R92.8 Other abnormal and inconclusive findings on diagnostic imaging of breast
CPT/HCPCS: 77063; 77067

== ENCOUNTER 2021-07-28 18:19 | Outpatient (REF) | payer MEDICARE, SELFPAY ==
[2021-07-30 10:54] LABS: COVID-19 RT-PCR UVMMC Result Negative (Negative)
== END 2021-07-28 18:20 | disposition home or self-care (01) ==
LOC: LBN 18:19
PROVIDERS: PCP Nurse Practitioner Adult Health; Visit Provider Nurse Practitioner Family
DX: J02.9 Acute pharyngitis, unspecified (principal)
CPT/HCPCS: U0003; U0005; 87070

== ENCOUNTER 2022-02-28 04:41 | Outpatient (CLI) | payer MEDICARE, SELFPAY ==
[2022-02-28 09:09] LABS: ALT 25 U/L (14-59); AST 20 U/L (15-37); Albumin 3.7 g/dL (3.4-5.0); Alkaline Phosphatase 82 U/L (46-116); Anion Gap 6.5 mmol/L (3-11); BUN 22 mg/dL (7-18); Bilirubin, Total 0.5 mg/dL (0.2-1.0); CO2 27.5 mmol/L (21.0-32.0); CREATININE 1.1 mg/dL (0.55-1.02); Calcium 8.7 mg/dL (8.5-10.1); Calculated LDL 161 mg/dL (<100); Chloride 107 mmol/L (98-107); Cholesterol 263 mg/dL (<200); Estimated GFR 49.25 (mL/min/1.73m2); Glucose 107 mg/dL (74-106); HDL Cholesterol 88 mg/dL (40-60); Potassium 4.2 mmol/L (3.5-5.1); Sodium 141 mmol/L (136-145); Total Protein 6.4 g/dL (6.4-8.2); Triglyceride 74 mg/dL (<150)
[2022-02-28 09:18] LABS: PHOSPHORUS 3.7 mg/dL (2.6-4.7)
[2022-02-28 09:33] LABS: Vitamin D 25 Total 103.3 ng/mL (30-100)
[2022-03-01 09:13] LABS: Parathyroid Hormone,Intact 37 pg/mL (19-88)
== END 2022-02-28 04:42 | disposition home or self-care (01) ==
LOC: LBO 04:42
PROVIDERS: PCP Nurse Practitioner Adult Health; Visit Provider Nurse Practitioner Adult Health
DX: E11.9 Type 2 diabetes mellitus without complications (principal); E78.5 Hyperlipidemia, unspecified; M81.0 Age-related osteoporosis without current pathological fracture; R94.4 Abnormal results of kidney function studies; Z83.3 Family history of diabetes mellitus
CPT/HCPCS: 36415; 80053; 80061; 82306; 83970; 84100

== ENCOUNTER 2022-03-23 02:16 | Outpatient (CLI) | payer MEDICARE, SELFPAY ==
[2022-03-23 15:04] LABS: Source Nasal/Nares
[2022-03-24 01:23] LABS: COVID-19 PCR Negative (Negative)
== END 2022-03-23 02:17 | disposition home or self-care (01) ==
PROVIDERS: PCP Nurse Practitioner Adult Health; Visit Provider Podiatrist
DX: Z20.822 Contact with and (suspected) exposure to COVID-19 (principal); Z01.818 Encounter for other preprocedural examination
CPT/HCPCS: 87635; U0005

== ENCOUNTER 2022-03-25 06:16 | Day surgery (SDC) | payer MEDICARE, SELFPAY ==
--- NOTE | 2022-03-24 17:38 | HPE_ITS ---
Date of service: 03/25/22 Assessment and Plan Assessment and plan (1) Bunion of great toe of left foot: Status: Acute (2) Hammertoe of left foot: Status: Acute Assessment and plan: Kinga is being brought to the OR for surgical repair of the bunion and 5th digit hammertoe of the left foot. Risks and complications were reviewed, all questions answered, no promises offered concerning the outcome. History of Present Illness History of Present Illness Chief Complaint: symptomatic left bunion and 5th digit hammertoe Narrative: 71 YO female with pain associated with a bunion deformity and 5th digit hammetoe that is interfering with shoe gear and daily activities. Non Operative treatments have failed to provide relief from symptoms and she is seeking surgical managment. Review of Systems Narrative: Heads normocephalic eyes PERRLA Uvula is midline, no lesions noted Heart has RRR, no murmurs, gallops or rubs heard Lung ramirez are clear Abdomen is soft, BS x 4 Peripheral pusles are -2/4, No edema Moderate bunion deformity is noted, digiti quinti varus deformity with soft corn is noted all to the left foot. Periarticular tenderness is noted obout the bunion joint and 5th toe with palpation. PFSH All Active Problems (Updated 03/24/22 @ 17:45 by Javier Stuart DPM) Hammertoe of left foot (Acute) Bunion of great toe of left foot (Acute) Vitamin D overdose (Acute) Impaired fasting glucose (Acute ~02/2022) Osteoporosis (Chronic) DEXA 2018--L forearm osteoporosis; dietary calcium & Vit D GERD (gastroesophageal reflux disease) (Chronic) EGD Kaylen Gutierrez 2020) Bronchiectasis (Acute) On imaging Family history of diabetes mellitus (Chronic) Hyperlipidemia (Chronic 04/18/12) 11/2015 labwork: ACC/AHA 10-year ASCVD risk = ~4% --> no statin indicated at this time 2018: ACC 10-yr ASCVD risk 5.8%--> no statin 2020: ASCVD 10-yr risk 5.9%-->no statin Family history of colon cancer (Chronic 11/25/15) Father & sister Decreased GFR (Chronic 01/13/16) Normal renal U/S 2017; Normal CT 2018 Anxiety (Chronic 08/14/14) Health anxiety 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 Ferguson no malignancy R elbow surgery ~1998 To repair tendonitis Repair, Rotator Cuff Left shoulder, ~ S/P laparoscopic appendectomy (~02/03/19) S/P trigger finger release (~09/2019) R 4th, [place] [facility] TRIGGER FINGER RELEASE (01/12/16) RIGHT MIDDLE FINGER/DR. ESTRADA L thumb L middle R ring 09/2019 [facility] Trigger Finger release (03/30/07) RIGHT THUMB/DR. ESTRADA Family History Mother Myocardial infarction Breast cancer Diabetes Heart disease Hyperlipidemia Hypertension CKD (chronic kidney disease) Depression Osteoporosis Father Family history of colon cancer Hyperlipidemia Hypertension Sister Hyperlipidemia Sister Colorectal cancer Niece Diabetes Nephew , T1 Diabetes Brother Heart disease [place] at 60 with stents r/t poor diet Sister Hyperlipidemia Pre-diabetes Brother Bladder cancer Social History Smoking/Tobacco Use Status: Never Smoking risk assessment performed?: Yes Alcohol Intake: current Alcohol Intake frequency: a few times a month Alcohol type: wine Drug use: Never Substance use type: does not use 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, 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 Current gender identity: female Working smoke detector in home: Yes Fire extinguisher in home: Yes Carbon monox detector in home: Yes Do you feel safe at home: Yes Do you feel safe in your relationship?: Yes History History 2 Para Hx # Term Pregnancies Multiple births Hx # Pregnancies Ectopic pregnancies AB induced Hx Number of Living Children 2 AB spontaneous Meds Allergies and Home Medications Allergies Allergy/AdvReac Type Severity Reaction Status Date / Time No Known Drug Allergies Allergy Verified 03/23/22 10:31 Home Medications Medication Instructions Recorded Confirmed Type lactobacillus combo no.11 15 1 ea PO BID 11/25/15 03/23/22 History billion cell sprinkle capsule (Probiotic) cartilage 40 mg-collagen II 10 1 ea PO DAILY 02/13/17 03/23/22 History mg-boron 5 mg-hyaluronate 3.3 mg tablet ([place]) fluticasone propionate 50 2 spray intranasal DAILY PRN nasal 09/09/19 03/23/22 Rx mcg/actuation nasal congestion #9.9 mL spray,suspension (Flonase Allergy Relief) cholecalciferol (vitamin D3) 125 5,000 unit PO DAILY 09/20/19 03/23/22 History mcg (5,000 unit) tablet (Vitamin D3) multivitamin (Daily Multi-Vitamin 1 tab PO DAILY 05/03/21 03/23/22 History tablet) benzonatate 100 mg capsule 100 mg PO BID-TID PRN cough #14 11/17/21 03/23/22 Rx caps Faye Pulse 1 tab PO DAILY 03/07/22 03/23/22 History
[2022-03-25 06:15] VITALS: BP 141/74; PULSE 61; RESP 18; TEMP 36.6; O2SAT 98
[2022-03-25] MEDS: Lactated Ringers 1,000 ML 80 ML IV (06:37)
--- NOTE | 2022-03-25 07:14 | ANES.PREOP_ITS ---
General Info Date of Service Date Performed: 03/25/22 Height: 4 ft 11.5 in Weight: 60.1 kg Body Mass Index (BMI): 26.3 Surgical Procedure: Operation Date: 03/25/22 07:40 Proposed Procedure Side Surgeon p Bunionectomy Leoncio Type Left Javier Stuart DPM s Arthroplasty Javier Stuart DPM Meds Allergies and Home Medications Allergies Allergy/AdvReac Type Severity Reaction Status Date / Time No Known Drug Allergies Allergy Verified 03/25/22 06:21 Home Medication Medication Instructions Recorded lactobacillus combo no.11 15 1 ea PO BID 11/25/15 billion cell sprinkle capsule (Probiotic) cartilage 40 mg-collagen II 10 1 ea PO DAILY 02/13/17 mg-boron 5 mg-hyaluronate 3.3 mg tablet ([facility]) fluticasone propionate 50 2 spray intranasal DAILY PRN nasal 09/09/19 mcg/actuation nasal congestion #9.9 mL spray,suspension (Flonase Allergy Relief) cholecalciferol (vitamin D3) 125 5,000 unit PO DAILY 09/20/19 mcg (5,000 unit) tablet (Vitamin D3) multivitamin (Daily Multi-Vitamin 1 tab PO DAILY 05/03/21 tablet) benzonatate 100 mg capsule 100 mg PO BID-TID PRN cough #14 11/17/21 caps Faye Pulse 1 tab PO DAILY 03/07/22 Current Visit Medications: Current Medications Generic Name Dose Route Start Last Admin Trade Name Freq PRN Reason Stop Dose Admin Sodium Chloride 500 mls @ 0 mls/hr 03/25/22 06:00 Saline 500ml Bag IV PRN PRN As Directed Cefazolin Sodium/Dextrose 1 gm in 50 mls @ 100 mls/hr 03/25/22 06:00 Ancef Duplex IVPB 03/25/22 16:00 PREOP BINA Ringer's Solution 1,000 mls @ 80 mls/hr 03/25/22 06:00 03/25/22 06:37 IV 04/23/22 23:59 80 mls/hr INFUSION BINA Administration IV Miscellaneous Supplies 1 each 03/25/22 06:00 Iv Access IV DIRECTED BINA IV Miscellaneous Supplies 1 each 03/25/22 06:00 Iv Access IV 04/23/22 23:59 DIRECTED BINA Povidone Iodine 0 ml 03/25/22 06:00 Povidone-Iodine Soln. 118 Ml Btl TP DIRECTED BINA Sodium Chloride 0 ml 03/25/22 06:00 Normal Saline Flush 10 Ml Syr IVP PRN PRN Sodium Chloride 0 ml 03/25/22 06:00 Normal Saline Flush 10 Ml Syr IV 04/23/22 23:59 PRN PRN Sodium Chloride 0 ml 03/25/22 06:00 Normal Saline 10 Ml Vial IJ 04/23/22 23:59 DIRECTED PRN Sterile Water 0 ml 03/25/22 06:00 Water,Injection,Sterile 10 Ml Vial IJ 04/23/22 23:59 DIRECTED PRN PFSH Active Problems Active Problems: Problem Status Onset Code Anxiety 08/14/14 F41.9 Decreased GFR 01/13/16 R94.4 Family history of colon cancer 11/25/15 Z80.0 Hyperlipidemia 04/18/12 E78.5 Family history of diabetes mellitus Z83.3 Bronchiectasis J47.9 GERD (gastroesophageal reflux disease) K21.9 Osteoporosis M81.0 Impaired fasting glucose ~02/2022 R73.01 Vitamin D overdose T45.2X1A Bunion of great toe of left foot M21.612 Hammertoe of left foot M20.42 Medical History Medical History (Updated 03/25/22 @ 06:20 by Chiquita Navas) Mass of soft palate (06/11/15) [facility] excised 06/11/15 path results-squamous papilloma Osteopenia determined by x-ray (01/01/18) DEXA 2016 (osteoporosis of L forearm; no fractures) Supplementing with Ca & Vit D SARS-CoV-2 positive Trigger finger of both hands Surgical History Surgical History (Updated 03/25/22 @ 06:19 by Chiquita Navas) section 1976 Cholecystectomy (~2008) Colonoscopy - IV Sedation (06/13/17) Dilation and curettage (~01/2018) H/O dilation and curettage H/O esophagogastroduodenoscopy 03/30/21 [facility] History of appendectomy History of cholecystectomy L oropharynx mass biosy (08/13/15) Dr. Ferguson no malignancy R elbow surgery ~1998 To repair tendonitis Repair, Rotator Cuff Left shoulder, ~ S/P laparoscopic appendectomy (~02/03/19) S/P rotator cuff repair S/P trigger finger release (~09/2019) R 4th, [place] [facility] TRIGGER FINGER RELEASE (01/12/16) RIGHT MIDDLE FINGER/DR. ESTRADA L thumb L middle R ring 09/2019 [place] Trigger Finger release (03/30/07) RIGHT THUMB/DR. ESTRADA Tobacco Smoking/Tobacco Use Status: Never Alcohol Alcohol Intake: current Alcohol intake frequency: a few times a month Alcohol type: wine Substance Use Substance use: Never Substance use type: does not use Prental History History 2 Para Hx # Term Pregnancies Multiple births Hx # Pregnancies Ectopic pregnancies AB induced Hx Number of Living Children 2 AB spontaneous Vital Signs and Lab Results Vital Signs Most Recent Vital Signs in EMR: Most Recent Vital Signs Temp Pulse Resp BP Pulse Ox 36.6 C 61 18 141/74 H 98 03/25/22 06:15 03/25/22 06:15 03/25/22 06:15 03/25/22 06:15 03/25/22 06:15 Lab Results Blood Type / Crossmatch: No Data to Display Complete Blood Count: No Data to Display Complete Metabolic Panel: Sodium Level 141 mmol/L (136-145) 02/28/22 08:16 Potassium Level 4.2 mmol/L (3.5-5.1) 02/28/22 08:16 Chloride Level 107 mmol/L (98-107) 02/28/22 08:16 Carbon Dioxide Level 27.5 mmol/L (21.0-32.0) 02/28/22 08:16 Blood Urea Nitrogen 22 mg/dL (7-18) H 02/28/22 08:16 Creatinine 1.1 mg/dL (0.55-1.02) H 02/28/22 08:16 Estimated GFR/1.73 m2 49.25 (mL/min/1.73m2) 02/28/22 08:16 Calcium Level 8.7 mg/dL (8.5-10.1) 02/28/22 08:16 Albumin 3.7 g/dL (3.4-5.0) 02/28/22 08:16 Glucose Level 107 mg/dL (74-106) H 02/28/22 08:16 Hemoglobin A1c 5.6 % (4.5-5.7) 03/07/22 13:45 Liver Function Panel: Alanine Aminotransferase (ALT/SGPT) 25 U/L (14-59) 02/28/22 08: 16 Aspartate Amino Transf (AST/SGOT) 20 U/L (15-37) 02/28/22 08:16 Coagulation Panel: No Data to Display Cardiac Panel: No Data to Display Arterial Blood Gas: No Data to Display Venous Blood Gas: No Data to Display Pancreas Panel: No Data to Display Thyroid Panel: No Data to Display Infectious Disease: Coronavirus (COVID-19)(PCR) Negative (Negative) 03/23/22 12:00 Coronavirus 2019 Source Nasal/Nares 03/23/22 12:00 Blood Cultures: No Data to Display Toxicology Panel: No Data to Display Imaging and Studies Imaging and Studies Study information below may be from another EMR and interpreted by another provider. Please see original notes in EMR for more complete details. Stress Test Summary: mpressions: Normal study after maximal exercise. Anesthesia Assessment and Plan Anesthesia History Personal History: No History of Anesthesia Complications Family History: No Family History of Anesthesia Complications Exercise Tolerance Exercise Tolerance: Metabolic Equivalents>4 Pertinent Negatives Pertinent Negatives: No Symptoms of GERD, No Major Cardiovascular Symptoms or Complaints, No Major Pulmonary Symptoms or Complaints and No History of CVA/TIA Cardiac & Pulmonary Exam Cardiac Exam: Normal S1/S2 Heart Sounds Pulmonary Exam: Clear Bilateral Breath Sounds Implantable Cardiac Device Does patient have a Pacemaker or an ICD?: No Airway Exam Known Difficult Airway: No Mallampati Class: 1 Mouth Opening: Normal (> 3cm) Thyromental Distance: Greater than 3 cm Neck Range of Motion: Full ROM Neck Circumference: Normal Teeth Condition: Normal Dentition ASA Classification ASA Score: ASA 2 Emergency Case?: No NPO Status NPO Status: NPO Clears >2 hours, Solids >8 hours Anesthesia Plan Resuscitation Status: Full Code Anesthesia Technique: MAC Anesthesia Airway Planned: Natural Airway Monitors Used: Standard Monitors
[2022-03-25 07:15] VITALS: BMI 26.3
[2022-03-25] MEDS: ceFAZolin 1 GM/50 ML BAG IVPB (07:25)
[2022-03-25] MEDS: Lidocaine 1% Pres-Free 30 ML VIAL (08:15)
[2022-03-25] MEDS: Bupivacaine 0.5% Pres-Free 30 ML VIAL (08:15)
[2022-03-25] MEDS: Dexamethasone 4 MG/ML VIAL (08:44)
[2022-03-25 08:55] VITALS: BP 138/78; PULSE 49; RESP 16; TEMP 35.4; O2SAT 99
--- NOTE | 2022-03-25 08:57 | W.PM.DSUDISC ---
Discharge Plan Disposition Patient Disposition: HOME Condition: Good Discharge Details Reason For Visit: reapair left bunion and 5th digit hammertoe Attending Provider: Javier Stuart Primary Care Provider: Karla Ricardo Home Meds and New Rx's Prescriptions: New oxycodone-acetaminophen 5-325 mg tablet 1 tab PO Q6H PRN (Reason: post op pain) Qty: 7 0RF ibuprofen 600 mg tablet 600 mg PO Q6H PRN (Reason: pain and inflammation) Qty: 60 0RF Continued fluticasone propionate [Flonase Allergy Relief] 50 mcg/actuation spray,suspension 2 spray JUSTA DAILY PRN (Reason: nasal congestion) Qty: 9.9 0RF Rx Instructions: administer into each nostril multivitamin [Daily Multi-Vitamin] Tablet 1 tab PO DAILY Label Comments: RITUAL Brand Probiotic 1 EACH capsule, sprinkle 1 ea PO BID [facility] 1 EACH tablet 1 ea PO DAILY benzonatate 100 mg capsule 100 mg PO BID-TID PRN (Reason: cough) Qty: 14 0RF Rx Instructions: May take one capsule every 8 -12 hours as needed for cough Faye Pulse 1 tab PO DAILY cholecalciferol (vitamin D3) [Vitamin D3] 5,000 unit Tablet 5,000 unit PO DAILY Hold Instructions: Home Medication placed on hold at Doctor's office Discharge Instructions Activity:: Activity as Tolerated Remove Dressings/Wound Care:: Do Not Remove Shower/Bathe:: Cover Diet:: Normal Diet Discharge Orders Discharge Orders: Discharge Order (Routine); Ordered 03/25/22 Ordered By: Javier Stuart DS: Diagnosis Discharge Diagnosis (1) Bunion of great toe of left foot: Start date: 03/25/22 Start time: 07:57 Status: Acute Asessment and Plan: s/p don type bunionectomy left (2) Hammertoe of left foot: Start date: 03/25/22 Start time: 07:58 Status: Acute Asessment and Plan: arthroplasty left 5th toe
--- NOTE | 2022-03-25 09:06 | W.PM.OP ---
Date of service: 03/25/22 Time of Service: 08:07 Operative Note Operative Note DATE OF PROCEDURE: 03/25/22 PRE-OP DIAGNOSIS: Hallux valgus deformity left foot; hammertoe left fifth digit PROCEDURE: Leoncio type bunionectomy with internal screw fixation utilizing Synthes 2.7 millimeter screws x2 Arthroplasty left fifth digit SURGEON: Javier Stuart Refer to Anesthesia Record ESTIMATED BLOOD LOSS: 1 PATHOLOGY: none sent TOURNIQUET TIME: 66 COMPLICATIONS: None Patient was transported to: same day Implants: Synthes 2.7 cortical screws x2 Indications: 71-year-old female with increasing pain associated with a left bunion and fifth digit hammertoe. Both conditions are causing pain in shoe gear interfering with comfortable ambulation and daily activities. Nonoperative treatments have failed to provide sufficient relief of symptoms. She is requesting surgical intervention to correct the underlying deformities. She understands risk and complications of surgery pertaining to pain, scarring, infection, nerve injury, overcorrection or under correction of the deformities, nonunion, malunion, delayed union of the osteotomy, hardware discomfort requiring its removal. All questions have been answered in detail. No promises made to the final outcome of surgery. Procedure Description: Kinga was brought to the operative suite placed in the supine position with the left foot prepped and draped in the usual sterile podiatric fashion. Timeout was performed for safe surgery. Anesthesia being obtained the left foot was exsanguinated well-padded ankle tourniquet inflated 250 mmHg. Attention was directed to the left first MPJ where a 5 cm dorsal medial incision was made parallel to the EHL tendon. Dissection was carried down in controlled Fashion hemostasis being acquired with electrocautery. Joint capsule was then visualized lateral dissection was performed due to contracture and a lateral capsulotomy and adductor tendon release performed. A medial inverted L capsulotomy was then performed. The capsule was reflected in the first metatarsal delivered into the wound. Mild degenerative changes were noted throughout the articular surface but overall it appeared to be quite viable. Medial shelf was gently reduced and an offset V osteotomy performed so as to translocate the head of the first metatarsal laterally. This was achieved the head was impacted and fixated with 2.7 cortical screws x2 the medial shelf was resected all rough and bony edges rasped smooth. Copious irrigation was performed a medial capsulorrhaphy was performed and the medial capsule closed with 3-0 Vicryl subcutaneous layer closed with 3-0 Vicryl the subcuticular layer was closed with 4-0 Vicryl and a running subcuticular stitch of 4-0 Monocryl used to coapt the skin attention was now directed to the left fifth toe. 2 converging elliptical incisions were placed running proximal lateral to distal medial centered over the PIPJ. The skin wedge was removed. Soft tissue mobilization and dissection was performed. The joint capsule and extensor tendon was transversely incised over the PIPJ with a #15 scalpel. Medial lateral collaterals were released and the head of the proximal phalanx delivered into the wound. The head was resected at its surgical neck with double-action bone cutting forcep. All rough and bony edges were rasped smooth. Good resection of bone was appreciated based on the relaxation of the fifth toe. Copious irrigation was performed. The extensor tendon was repaired with simple interrupted suture 3-0 Vicryl the skin was then coapted with simple interrupted suture of 4-0 nylon 4 mg of dexamethasone phosphate was infused about the first MPJ additional local anesthetic approximately 10 cc of 0.5% Marcaine was then infused around the surgical site for prolonged pain relief Xeroform gauze fluff compression dressings were applied and the tourniquet was released at 66 minutes vascularity returned to all toes immediately. Kinga left the OR vital signs stable vascular status intact she will be followed by myself in the office next week. Sharp and sponge counts were correct. Dictation not reviewed for accuracy utilizing Leonides howell speaking.
--- NOTE | 2022-03-25 09:12 | W.ANESPOSTOP ---
Postoperative Evaluation Date, Time and Location Date Performed: 03/25/22 Time Performed: 09:12 Patient Location: Day Surgery Unit Vital Signs Most Recent Imported Vital Signs: Most Recent Vital Signs Temp Pulse Resp BP Pulse Ox 35.4 C L 49 L 16 138/78 99 03/25/22 08:55 03/25/22 08:55 03/25/22 08:55 03/25/22 08:55 03/25/22 08:55 Pain Score Most Recent Pain Score: Most Recent Pain Score Pain Level 0 03/25/22 08:55 Assessment Mental Status: Awake (Alert & Oriented to Patient Baseline) Airway and Respiratory Function: Patent airway with normal (patient baseline) respiratory exam Cardiovascular Function: Hemodynamically Stable Hydration Status: Adequately Hydrated Nausea & Vomiting: No Nausea or Vomiting Pain: Pt. Denies Any Pain Peripheral Nerve Block: Patient did not receive a nerve block
[2022-03-25 09:20] VITALS: BP 142/72; PULSE 64; RESP 18; TEMP 36; O2SAT 98
--- NOTE | 2022-03-25 09:26 | W.PM.DSUDISC ---
Discharge Plan Disposition Patient Disposition: HOME Condition: Good Discharge Details Reason For Visit: reapair left bunion and 5th digit hammertoe Attending Provider: Javier Stuart Primary Care Provider: Karla Ricardo Home Meds and New Rx's Prescriptions: New oxycodone-acetaminophen 5-325 mg tablet 1 tab PO Q6H PRN (Reason: post op pain) Qty: 7 0RF ibuprofen 600 mg tablet 600 mg PO Q6H PRN (Reason: pain and inflammation) Qty: 60 0RF oxycodone-acetaminophen 5-325 mg tablet 1 tab PO Q6H PRN (Reason: pain) Qty: 7 0RF Continued fluticasone propionate [Flonase Allergy Relief] 50 mcg/actuation spray,suspension 2 spray JUSTA DAILY PRN (Reason: nasal congestion) Qty: 9.9 0RF Rx Instructions: administer into each nostril multivitamin [Daily Multi-Vitamin] Tablet 1 tab PO DAILY Label Comments: RITUAL Brand Probiotic 1 EACH capsule, sprinkle 1 ea PO BID [facility] 1 EACH tablet 1 ea PO DAILY benzonatate 100 mg capsule 100 mg PO BID-TID PRN (Reason: cough) Qty: 14 0RF Rx Instructions: May take one capsule every 8 -12 hours as needed for cough Faye Pulse 1 tab PO DAILY cholecalciferol (vitamin D3) [Vitamin D3] 5,000 unit Tablet 5,000 unit PO DAILY Hold Instructions: Home Medication placed on hold at Doctor's office Discharge Instructions Stand Alone Forms: Anesthesia Discharge Inst., Sade's Instructions-DSU, [facility] Arch[facility] (DSU) Activity:: Activity as Tolerated Remove Dressings/Wound Care:: Do Not Remove Shower/Bathe:: Cover Diet:: Normal Diet Discharge Orders Discharge Orders: Discharge Order (Routine); Ordered 03/25/22 Ordered By: Javier Stuart DS: Diagnosis Discharge Diagnosis (1) Bunion of great toe of left foot: Status: Acute (2) Hammertoe of left foot: Status: Acute
== END 2022-03-25 09:55 | disposition home or self-care (01) ==
PROVIDERS: PCP Nurse Practitioner Adult Health; Visit Provider Podiatrist
PROC: (CPT 28292; principal; 2022-03-25 07:30)
PROC: (CPT 28296; 2022-03-25 07:30)
DX: M21.612 Bunion of left foot (principal); M20.42 Other hammer toe(s) (acquired), left foot; K21.9 Gastro-esophageal reflux disease without esophagitis; M81.0 Age-related osteoporosis without current pathological fracture; E78.5 Hyperlipidemia, unspecified; R73.01 Impaired fasting glucose
CPT/HCPCS: 28296; 28285; J0690; J1100; J1885; J2405

== ENCOUNTER → 2022-05-20 00:28 | Outpatient (CLI) | payer MEDICARE, SELFPAY ==
--- NOTE | 2022-05-20 13:30 | DI.MAMMO_ITS ---
Exam(s) MAMMO SCREENING EXAM: MAMMO SCREENING CLINICAL HISTORY: screening,z12.39 TECHNIQUE: Bilateral full field digital CC and MLO mammographic images were obtained with 3D tomosyn thesis and utilizing computer aided detection (CAD). COMPARISON: Available for comparison. FINDINGS: Masses/Architectural Distortion: None seen. Microcalcifications: No suspicious pleomorphic-type are seen. Skin Thickening/Nipple Retraction: None. IMPRESSION: 1. No significant interval change with no specific features of malignancy noted. 2. Unless there is more urgent need, screening mammography is recommended, as per [place] [employer] guidelines. BI-RADS Category 1 - Negative Breast Density - Category C - Heterogeneously dense Breast density category C or D implies that the patient has dense breast tissue. Dense breast tissue is very common and is not abnormal but dense breast tissue can make it harder to find cancer on a ma mmogram. Also, dense breast tissue may increase their breast cancer risk. This information about the result of the mammogram report was provided to the patient to raise their awareness. Use this report when you speak with the patient about their risks for breast cancer, which includes their family hist ory. At that time, you may recommend for more screening tests (Ultrasound or MRI) as they might be us eful based on their risk. A negative radiographic report should not delay biopsy if a dominant or clinically suspicious mass is present. Up to ten percent of cancers are not identified on mammography. A negative report may reinforce clinical impression. Adenosis and dense breasts may obscure an underlying neoplasm. False positive reports average 6 to 10%. Patient will receive a letter notifying them of these results.
== END ==
PROVIDERS: PCP Nurse Practitioner Adult Health; Visit Provider Nurse Practitioner Adult Health
DX: Z12.31 Encounter for screening mammogram for malignant neoplasm of breast (principal)
CPT/HCPCS: 77063; 77067

== ENCOUNTER 2022-06-08 02:57 | Outpatient (CLI) | payer MEDICARE, SELFPAY ==
[2022-06-08 08:46] LABS: Lab Add On Test DONE
[2022-06-08 08:53] LABS: Hemoglobin A1C 5.6 % (<5.7)
[2022-06-08 08:54] LABS: Anion Gap 7.9 mmol/L (3-11); BUN 24 mg/dL (7-18); CO2 27.1 mmol/L (21.0-32.0); Chloride 107 mmol/L (98-107); Estimated GFR 54.97 (mL/min/1.73m2); Glucose 94 mg/dL (74-106); Potassium 4.1 mmol/L (3.5-5.1); Sodium 142 mmol/L (136-145)
[2022-06-09 05:43] LABS: Vitamin D 25 Total 95.3 ng/mL (30-100)
== END 2022-06-08 02:58 | disposition home or self-care (01) ==
LOC: LBO 02:57
PROVIDERS: PCP Nurse Practitioner Adult Health; Visit Provider Nurse Practitioner Adult Health
DX: R73.01 Impaired fasting glucose (principal); Z83.3 Family history of diabetes mellitus; M81.0 Age-related osteoporosis without current pathological fracture; R94.4 Abnormal results of kidney function studies; T45.2X1A Poisoning by vitamins, accidental (unintentional), initial encounter
CPT/HCPCS: 80048; 82306; 83036

== ENCOUNTER 2023-02-15 09:24 | Emergency (ER) | payer MEDICARE, SELFPAY ==
[2023-02-15 09:27] VITALS: BP 159/86; PULSE 108; RESP 18; TEMP 36.4; O2SAT 98
[2023-02-15] MEDS: Metoclopramide 10 MG/2 ML VIAL IVP (09:51)
[2023-02-15] MEDS: Ondansetron 4 MG/2 ML VIAL IVP (09:51)
[2023-02-15 09:52] LABS: Abs Immature Grans 0.03 10^3/uL (0.0-0.06); Absolute Basophil Count 0.03 10^3/uL (0.0-0.2); Absolute Eosinophil Count 0.01 10^3/uL (0.0-0.7); Absolute Lymphocyte Count 0.11 10^3/uL (1.2-3.4); Absolute Monocyte Count 0.62 10^3/uL (0.1-0.8); Absolute Neutrophil Count 11.95 10^3/uL (1.2-6.7); Basophils % 0.2; Eosinophils % 0.1; HGB 15.3 g/dL (11.2-15.7); Immature Grans % 0.2; Lymphocytes % 0.9; MCH 30.2 pg (27.0-33.0); MCV 89 fL (80-95); MPV 10.6 fL (8.0-11.0); Monocytes % 4.9; Neutrophils % 93.7; Platelet Count 191 10^3/uL (130-400); RBC 5.07 10^6/uL (3.93-5.22); RDW 12.1 % (11.7-14.6); RDW-SD 39.1 fL; WBC 12.75 10^3/uL (4.4-10.8)
[2023-02-15] MEDS: Normal Saline 1,000 ML 1000 ML IV (09:52)
[2023-02-15 10:15] LABS: ALT 29 U/L (14-59); AST 20 U/L (15-37); Albumin 4.1 g/dL (3.4-5.0); Alkaline Phosphatase 79 U/L (46-116); BUN 30 mg/dL (7-18); Bilirubin, Total 0.8 mg/dL (0.2-1.0); Chloride 106 mmol/L (98-107); Estimated GFR 60.61 (mL/min/1.73m2); Glucose 191 mg/dL (74-106); Lipase 79 U/L (16-77); Potassium 4.2 mmol/L (3.5-5.1); Sodium 141 mmol/L (136-145); Total Protein 7.5 g/dL (6.4-8.2)
--- NOTE | 2023-02-15 10:17 | W.ED.GENAD ---
Discharge Plan Disposition Patient Disposition: Home Condition: Good Discharge Details Clinical Impression: Diarrhea Primary Care Provider: Karla Ricardo ED Provider: Marcell Pate Home Meds and New Rx's Prescriptions: New ondansetron 4 mg tablet,disintegrating 4 mg PO Q8H Qty: 20 0RF No Action fluticasone propionate [Flonase Allergy Relief] 50 mcg/actuation spray,suspension 2 spray JUSTA DAILY PRN (Reason: nasal congestion) Qty: 9.9 0RF Rx Instructions: administer into each nostril multivitamin [Daily Multi-Vitamin] Tablet 1 tab PO DAILY Patient Comments: RITUAL Brand Probiotic 1 EACH capsule, sprinkle 1 ea PO BID Joint Health 1 EACH tablet 1 ea PO DAILY benzonatate 100 mg capsule 100 mg PO BID-TID PRN (Reason: cough) Qty: 14 0RF Rx Instructions: May take one capsule every 8 -12 hours as needed for cough Faye Pulse 1 tab PO DAILY meclizine 25 mg tablet 12.5 - 25 mg PO QID PRN (Reason: dizziness) Qty: 30 0RF ibuprofen 600 mg tablet 600 mg PO Q6H PRN (Reason: pain and inflammation) Qty: 60 0RF cholecalciferol (vitamin D3) [Vitamin D3] 5,000 unit Tablet 5,000 unit PO DAILY Hold Instructions: Home Medication placed on hold at Doctor's office Discharge Instructions Instructions: Gastroenteritis (ED) Additional Instructions: At this time your symptoms appear consistent with gastroenteritis similar to what you are family members have had. Please stick with a liquid diet for the next 48 hours. Avoid any spicy or greasy foods, avoid any large meats or meals otherwise. Gradually transition then to a bland diet after 48 hours with rice, applesauce and bananas. Hydrate aggressively. Take [id number] Lomotil or Pepto-Bismol as needed for the diarrhea. If you notice that you continue to feel weak or do not feel like your symptoms are getting better you may need to come back for rehydration and reassessment like your family members. If you notice any worsening of your symptoms, or any new symptoms such as vomiting, diarrhea, fever, chills, shortness of breath, chest pain, numbness, weakness, or fainting , please return immediately to the emergency department for reevaluation. Please follow up with your primary care provider as soon as possible for reassessment and reevaluation. As always, it was a pleasure participating in your medical care today. Referrals: Karla Ricardo ACCESS CLERK [Primary Care Provider] - Medical Decision Making This is a pleasant 72-year-old female with past medical history of appendectomy, cholecystectomy, GERD, bronchiectasis, who presents today for evaluation of vomiting and diarrhea. Symptoms began at 3:30 AM this morning. I have unfortunately seen some of her other family members who have had identical symptoms over the last few days which is resulted in a viral gastroenteritis. Patient states that she was hoping she would not catch it but unfortunately now has similar symptoms. She denies any blood in her vomitus or stool. She denies any significant pain. She does admit to nausea. She denies any chest pain or shortness of breath. No other complaints at this time. No other modifying factors. Exam demonstrates well-appearing female, dry mucous membranes, no signs of an acute surgical abdomen or abdominal tenderness for that matter on exam. Symptoms clinically inconsistent at this time with obstruction, however there is concern for potential mild pancreatitis. Will rehydrate, treat with antiemetics, monitor closely and reassess. No indication for emergent imaging at this time based on current clinical exam and assessment. Symptoms inconsistent with cardiac etiology clinically at this time. 11:19 AM Laboratory work-up is returned, minimal white count, lipase minimally elevated, no transaminitis. On reassessment patient is tolerated p.o. She feels much better. She has been rehydrated with a liter of normal saline. Repeat abdominal exam shows no signs of an acute surgical abdomen whatsoever. Heart rate stable, vital stable. Symptoms at this time appear consistent with mild gastroenteritis. Patient feels comfortable for discharge. Will give Zofran to go. I did discuss with the patient that if her symptoms persist, or she develops weakness then she may need to come back for reassessment and potential rehydration or admission. Discussed red flags which to return. Patient feels comfortable with plan. I have extensively reviewed the treatment plan and discharge instructions with the patient. I have addressed all patient concerns at this time. The patient was made aware of what symptoms to monitor for that would warrant a return to the emergency department. Discussed the plan with the patient, they demonstrate verbal understanding and agreement with our assessment and plan at this time. The documentation in this chart was dictated using Dragon dictation software. Please excuse any dictation errors. HPI General Date/Time Provider Initiated Documentation: 02/15/23 09:29. HPI Narrative: This is a pleasant 72-year-old female with past medical history of appendectomy, cholecystectomy, GERD, bronchiectasis, who presents today for evaluation of vomiting and diarrhea. Symptoms began at 3:30 AM this morning. I have unfortunately seen some of her other family members who have had identical symptoms over the last few days which is resulted in a viral gastroenteritis. Patient states that she was hoping she would not catch it but unfortunately now has similar symptoms. She denies any blood in her vomitus or stool. She denies any significant pain. She does admit to nausea. She denies any chest pain or shortness of breath. No other complaints at this time. No other modifying factors. Related Data Home Medications Medication Instructions Recorded Confirmed lactobacillus combo no.11 15 1 ea PO BID 11/25/15 02/15/23 billion cell sprinkle capsule (Probiotic) cartilage 40 mg-collagen II 10 1 ea PO DAILY 02/13/17 02/15/23 mg-boron 5 mg-hyaluronate 3.3 mg tablet (JRapid) fluticasone propionate 50 2 spray intranasal DAILY PRN nasal 09/09/19 02/15/23 mcg/actuation nasal congestion #9.9 mL spray,suspension (Flonase Allergy Relief) cholecalciferol (vitamin D3) 125 5,000 unit PO DAILY 09/20/19 02/15/23 mcg (5,000 unit) tablet (Vitamin D3) multivitamin (Daily Multi-Vitamin 1 tab PO DAILY 05/03/21 02/15/23 tablet) benzonatate 100 mg capsule 100 mg PO BID-TID PRN cough #14 11/17/21 02/15/23 caps Faye Pulse 1 tab PO DAILY 03/07/22 02/15/23 ibuprofen 600 mg tablet 600 mg PO Q6H PRN pain and 03/25/22 02/15/23 inflammation #60 tabs meclizine 25 mg tablet 12.5 - 25 mg PO QID PRN dizziness 07/15/22 02/15/23 #30 tabs ondansetron 4 mg disintegrating 4 mg PO Q8H #20 tabs 02/15/23 tablet Previous Rx's Medication Instructions Recorded fluticasone propionate 50 2 spray intranasal DAILY PRN nasal 09/09/19 mcg/actuation nasal congestion #9.9 mL spray,suspension (Flonase Allergy Relief) benzonatate 100 mg capsule 100 mg PO BID-TID PRN cough #14 11/17/21 caps ibuprofen 600 mg tablet 600 mg PO Q6H PRN pain and 03/25/22 inflammation #60 tabs meclizine 25 mg tablet 12.5 - 25 mg PO QID PRN dizziness 07/15/22 #30 tabs ondansetron 4 mg disintegrating 4 mg PO Q8H #20 tabs 02/15/23 tablet Allergies Allergy/AdvReac Type Severity Reaction Status Date / Time No Known Drug Allergies Allergy Verified 02/15/23 09:33 General Stated Complaint: Nausea/Vomit/Diar FLORENTINO: 3 Review of Systems All systems reviewed & are unremarkable except as noted in HPI and below PFSH All Active Problems (Updated 02/15/23 @ 11:16 by Marcell Pate DO) Diarrhea (Acute) Anxiety (Chronic 08/14/14) Health anxiety 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 Herlinda Trevizo Decreased GFR (Chronic 01/13/16) Normal renal U/S 2018; Normal CT 2018 Family history of colon cancer (Chronic 11/25/15) Father & sister Hyperlipidemia (Chronic 04/18/12) 11/2015 labwork: ACC/AHA 10-year ASCVD risk = ~4% --> no statin indicated at this time 2018: ACC 10-yr ASCVD risk 5.8%--> no statin 2020: ASCVD 10-yr risk 5.9%-->no statin Family history of diabetes mellitus (Chronic) Bronchiectasis (Acute) On imaging GERD (gastroesophageal reflux disease) (Chronic) EGD [place] ([place] 2020) Osteoporosis (Chronic) DEXA 2019--L forearm osteoporosis; dietary calcium & Vit D Impaired fasting glucose (Acute ~02/2022) Vitamin D overdose (Acute) Bunion of great toe of left foot (Acute) Hammertoe of left foot (Acute) Medical History H/O solar lentigo (~07/2022) Mass of soft palate (06/11/15) [facility] 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 Ferguson no malignancy R elbow surgery ~1998 To repair tendonitis Repair, Rotator Cuff Left shoulder, ~ S/P laparoscopic appendectomy (~02/03/19) S/P rotator cuff repair S/P trigger finger release (~09/2019) R 4th, [place] [facility] TRIGGER FINGER RELEASE (01/12/16) RIGHT MIDDLE FINGER/DR. ESTRADA L thumb L middle R ring 09/2019 [facility] Trigger Finger release (03/30/07) RIGHT THUMB/DR. ESTRADA Family History Mother Myocardial infarction Breast cancer Diabetes Heart disease Hyperlipidemia Hypertension CKD (chronic kidney disease) Depression Osteoporosis Father Family history of colon cancer Hyperlipidemia Hypertension Sister Hyperlipidemia Sister Colorectal cancer Niece Diabetes Nephew , T1 Diabetes Brother Heart disease OK at 60 with stents r/t poor diet Sister Hyperlipidemia Pre-diabetes Brother Bladder cancer Social History Smoking/Tobacco Use Status: Never Smoking risk assessment performed?: Yes Alcohol Intake: current Alcohol Intake frequency: a few times a month Alcohol type: wine Drug use: Never Substance use type: does not use 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 3.ENT: Atraumatic external nose and ears. Dry MM. Neck: Symmetric, trachea midline, No thyromegaly. 4.CVS: +S1/S2, No murmurs or gallops. Peripheral pulses 2+ and equal in all extremities. Brisk capillary refill in all extremities. 5.RESP: Unlabored respiratory effort. Clear to auscultation bilaterally. No wheezes rales or rhonchi 6.GI: Soft, Nontender/Nondistended, No hepatosplenomegaly. No guarding or rebound. 7.MSK: Normocephalic/Atraumatic, Extremities w/o deformity or ttp No cyanosis or clubbing, Normal movement of all extremities 8.Skin: Warm, Dry. No rashes or lesions. 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 Sensation grossly intact, no focal neurologic deficits. 10.Psych: (AAO) x3. Appropriate mood and affect Course Vital Signs Vital signs: Vital Signs Temperature 36.4 C 02/15/23 09:27 Pulse 108 H 02/15/23 09:27 Respiratory Rate 18 02/15/23 09:27 Blood Pressure 159/86 H 02/15/23 09:27 Pulse Oximetry 98 02/15/23 09:27 Temperature 36.4 C 02/15/23 09:27 Temperature Source Tympanic 02/15/23 09:27 Pulse 108 H 02/15/23 09:27 Respiratory Rate 18 02/15/23 09:27 Respiratory Effort Normal 02/15/23 09:32 Blood Pressure 159/86 H 02/15/23 09:27 Blood Pressure Position Sitting 02/15/23 09:27 Pulse Oximetry 98 02/15/23 09:27 Oxygen Delivery Method Room Air 02/15/23 09:27 Oxygen Flow Rate 0 02/15/23 09:27 Pain Level 0 02/15/23 09:27 Lab/Test Results Lab/Test Results: Laboratory Tests Range/Units 02/15/23 02/15/23 09:46 09:46 WBC (4.4-10.8) 10^3/uL 12.75 H RBC (3.93-5.22) 10^6/uL 5.07 Hgb (11.2-15.7) g/dL 15.3 Hct (36.0-46.0) % 45.0 MCV (80-95) fL 89 MCH (27.0-33.0) pg 30.2 MCHC (32.0-36.0) % 34.0 RDW (11.7-14.6) % 12.1 Plt Count (130-400) 10^3/uL 191 MPV (8.0-11.0) fL 10.6 Immature Gran % 0.2 Neutrophils % 93.7 Lymphocytes % 0.9 Monocytes % 4.9 Eosinophils % 0.1 Basophils % 0.2 Nucleated RBC % (0.0-0.3) % 0.0 Absolute Neutrophils (1.2-6.7) 10^3/uL 11.95 H Absolute Lymphocytes (1.2-3.4) 10^3/uL 0.11 L Absolute Monocytes (0.1-0.8) 10^3/uL 0.62 Absolute Eosinophils (0.0-0.7) 10^3/uL 0.01 Absolute Basophils (0.0-0.2) 10^3/uL 0.03 Sodium (136-145) mmol/L 141 Potassium (3.5-5.1) mmol/L 4.2 Chloride (98-107) mmol/L 106 Carbon Dioxide (21.0-32.0) mmol/L 28.0 Anion Gap (3-11) mmol/L 7.0 BUN (7-18) mg/dL 30 H Creatinine (0.55-1.02) mg/dL 1.0 Est GFR (CKD-EPI 2020) (mL/min/1.73m2) 60.61 Glucose (74-106) mg/dL 191 H Calcium (8.5-10.1) mg/dL 9.0 Total Bilirubin (0.2-1.0) mg/dL 0.8 AST (15-37) U/L 20 ALT (14-59) U/L 29 Alkaline Phosphatase (46-116) U/L 79 Total Protein (6.4-8.2) g/dL 7.5 Albumin (3.4-5.0) g/dL 4.1 Lipase (16-77) U/L 79 H
[2023-02-15] MEDS: Dicyclomine 10 MG CAP PO (10:33)
== END 2023-02-15 11:27 | disposition home or self-care (01) ==
PROVIDERS: Emergency Provider Student in an Organized Health Care Education/Training Program; PCP Nurse Practitioner Adult Health
DX: R19.7 Diarrhea, unspecified (principal); R11.2 Nausea with vomiting, unspecified; Z90.49 Acquired absence of other specified parts of digestive tract; Z86.16 Personal history of COVID-19
CPT/HCPCS: 36415; 80053; 83690; 96361; 96374; 96375; 99284; 85025; J2405; J2765

== ENCOUNTER 2023-03-01 02:50 | Outpatient (CLI) | payer MEDICARE, SELFPAY ==
[2023-03-01 08:30] LABS: Hemoglobin A1C 5.7 % (<5.7)
[2023-03-01 08:58] LABS: ALT 37 U/L (14-59); AST 20 U/L (15-37); Albumin 3.7 g/dL (3.4-5.0); Alkaline Phosphatase 77 U/L (46-116); Anion Gap 6.8 mmol/L (3-11); BUN 29 mg/dL (7-18); Bilirubin, Total 0.6 mg/dL (0.2-1.0); CO2 30.2 mmol/L (21.0-32.0); CREATININE 1.1 mg/dL (0.55-1.02); Calcium 9.1 mg/dL (8.5-10.1); Calculated LDL 139 mg/dL (<100); Chloride 105 mmol/L (98-107); Cholesterol 243 mg/dL (<200); Estimated GFR 54.06 (mL/min/1.73m2); Glucose 98 mg/dL (74-106); HDL Cholesterol 78 mg/dL (40-60); Sodium 142 mmol/L (136-145); Total Protein 7.1 g/dL (6.4-8.2); Triglyceride 131 mg/dL (<150)
[2023-03-01 10:16] LABS: Vitamin D 25 Total 69.7 ng/mL (30-100)
== END 2023-03-01 02:51 | disposition home or self-care (01) ==
LOC: LBO 02:50
PROVIDERS: PCP Nurse Practitioner Adult Health; Visit Provider Nurse Practitioner Adult Health
DX: E78.5 Hyperlipidemia, unspecified (principal); R73.01 Impaired fasting glucose; M81.0 Age-related osteoporosis without current pathological fracture; R94.4 Abnormal results of kidney function studies; T45.2X1A Poisoning by vitamins, accidental (unintentional), initial encounter
CPT/HCPCS: 36415; 80053; 80061; 82306; 83036

== ENCOUNTER 2023-05-29 02:52 | Outpatient (CLI) | payer MEDICARE, SELFPAY ==
--- NOTE | 2023-05-29 06:45 | DI.MAMMO_ITS ---
Exam(s) MAMMO SCREENING EXAM: MAMMO SCREENING CLINICAL HISTORY: screening,z12.39 TECHNIQUE: Bilateral full field digital CC and MLO mammographic images were obtained with 3D tomosyn thesis and utilizing computer aided detection (CAD). COMPARISON: Available for comparison. FINDINGS: Masses/Architectural Distortion: None seen. Microcalcifications: No suspicious pleomorphic-type are seen. Skin Thickening/Nipple Retraction: None. IMPRESSION: 1. No significant interval change with no specific features of malignancy noted. 2. Unless there is more urgent need, screening mammography is recommended, as per [place] [employer] guidelines. BI-RADS Category 1 - Negative Breast Density - Category C - Heterogeneously dense Breast density category C or D implies that the patient has dense breast tissue. Dense breast tissue is very common and is not abnormal but dense breast tissue can make it harder to find cancer on a ma mmogram. Also, dense breast tissue may increase their breast cancer risk. This information about the result of the mammogram report was provided to the patient to raise their awareness. Use this report when you speak with the patient about their risks for breast cancer, which includes their family hist ory. At that time, you may recommend for more screening tests (Ultrasound or MRI) as they might be us eful based on their risk. A negative radiographic report should not delay biopsy if a dominant or clinically suspicious mass is present. Up to ten percent of cancers are not identified on mammography. A negative report may reinforce clinical impression. Adenosis and dense breasts may obscure an underlying neoplasm. False positive reports average 6 to 10%. Patient will receive a letter notifying them of these results.
== END 2023-05-29 03:12 ==
LOC: DI 02:52
PROVIDERS: PCP Nurse Practitioner Adult Health; Visit Provider Nurse Practitioner Adult Health
DX: Z12.31 Encounter for screening mammogram for malignant neoplasm of breast (principal)
CPT/HCPCS: 77063; 77067

== ENCOUNTER → 2023-06-28 15:24 | Outpatient (CLI) | payer MEDICARE, SELFPAY ==
--- NOTE | 2023-06-28 11:00 | DI.RAD_ITS ---
Exam(s) XR FOOT LT COMPLETE EXAM: XR FOOT LT COMPLETE CLINICAL HISTORY: Painful bunion,m21.612. TECHNIQUE: 2D digital imaging was performed of the left foot. Three images were obtained. AP, obli que and lateral views were obtained. COMPARISON: No exams were available for comparison FINDINGS: BONES: No acute fracture is present. No bony destructive lesion is seen. There are postsurgical power es involving the 1st metatarsal and the proximal phalanx of the 5th toe. JOINTS: No dislocation present. The joint spaces are well maintained. SOFT TISSUE: Normal. IMPRESSION: No acute abnormality. DATA REPOSITORY: RADIATION DOSE DELIVERED:
== END ==
PROVIDERS: PCP Nurse Practitioner Adult Health; Visit Provider Podiatrist
DX: M21.612 Bunion of left foot (principal)
CPT/HCPCS: 73630

== ENCOUNTER 2023-07-28 20:43 | Outpatient (REF) | payer MEDICARE, SELFPAY | END 2023-07-28 20:44 | disposition home or self-care (01) | LOC: LBN 20:43 | PROVIDERS: PCP Nurse Practitioner Adult Health; Visit Provider Family Medicine | DX: R39.15 Urgency of urination (principal); R82.79 Other abnormal findings on microbiological examination of urine | CPT/HCPCS: 87077; 87086; 87186 ==

== ENCOUNTER → 2023-09-12 13:15 | Outpatient (BNVA) | payer MEDICARE, SELFPAY | PROVIDERS: PCP Nurse Practitioner Adult Health; Referring Provider Nurse Practitioner Adult Health; Visit Provider Podiatrist | DX: G57.62 Lesion of plantar nerve, left lower limb (principal); M72.2 Plantar fascial fibromatosis; M20.22 Hallux rigidus, left foot; M21.612 Bunion of left foot; M67.01 Short Achilles tendon (acquired), right ankle; M67.02 Short Achilles tendon (acquired), left ankle | CPT/HCPCS: 20550; J0702 ==

== ENCOUNTER 2023-10-02 15:38 | Outpatient (REF) | payer MEDICARE, SELFPAY ==
[2023-10-02 21:40] LABS: Bilirubin Negative (Negative); Blood Negative (Negative); Clarity Clear (Clear); Glucose Negative (Negative); Ketones Negative (Negative); Leukocyte Esterase Negative (Negative); Nitrite Positive (Negative); Urobilinogen 0.2 mg/dL (Up to 0.2)
[2023-10-02 21:49] LABS: Bacteria Moderate HPF (Negative); C & S Indicated? Yes; Casts Negative LPF (Negative); Crystals Negative HPF (Negative); Epithelial Cells Rare HPF (Negative); Mucus Negative (Negative); RBC Negative HPF (0-2)
== END 2023-10-02 15:39 | disposition home or self-care (01) ==
LOC: LBN 15:38
PROVIDERS: PCP Nurse Practitioner Adult Health; Visit Provider Nurse Practitioner Family
DX: R39.9 Unspecified symptoms and signs involving the genitourinary system (principal); B96.20 Unspecified Escherichia coli [E. coli] as the cause of diseases classified elsewhere
CPT/HCPCS: 87077; 81003; 81015; 87086; 87186

== ENCOUNTER → 2023-10-04 13:57 | Outpatient (BNVA) | payer MEDICARE, SELFPAY | PROVIDERS: PCP Nurse Practitioner Adult Health; Referring Provider Nurse Practitioner Adult Health; Visit Provider Podiatrist | DX: Z98.890 Other specified postprocedural states (principal); G57.62 Lesion of plantar nerve, left lower limb; M20.22 Hallux rigidus, left foot; M21.612 Bunion of left foot; M72.2 Plantar fascial fibromatosis; M67.01 Short Achilles tendon (acquired), right ankle; M67.02 Short Achilles tendon (acquired), left ankle; G57.92 Unspecified mononeuropathy of left lower limb | CPT/HCPCS: 99214 ==

== ENCOUNTER 2023-11-08 18:02 | Outpatient (REF) | payer MEDICARE, SELFPAY ==
[2023-11-08 21:36] LABS: Bilirubin Negative (Negative); Blood Negative (Negative); Clarity Clear (Clear); Glucose Negative (Negative); Ketones Negative (Negative); Leukocyte Esterase Negative (Negative); Nitrite Negative (Negative); Specific Gravity 1.015 (1.005-1.025); Urobilinogen 0.2 mg/dL (Up to 0.2); pH 7.5 (5-8)
== END 2023-11-08 18:03 | disposition home or self-care (01) ==
LOC: LBN 18:02
PROVIDERS: PCP Nurse Practitioner Adult Health; Visit Provider Physician Assistant
DX: R10.32 Left lower quadrant pain (principal)
CPT/HCPCS: 81003

== ENCOUNTER 2023-11-08 21:04 | Outpatient (REF) | payer MEDICARE, SELFPAY ==
[2023-11-08 21:19] LABS: Abs Immature Grans 0.02 10^3/uL (0.0-0.06); Absolute Basophil Count 0.04 10^3/uL (0.0-0.2); Absolute Eosinophil Count 0.04 10^3/uL (0.0-0.7); Absolute Monocyte Count 0.59 10^3/uL (0.1-0.8); Absolute Neutrophil Count 4.05 10^3/uL (1.2-6.7); Basophils % 0.7; Eosinophils % 0.7; HCT 43.1 % (36.0-46.0); HGB 14.4 g/dL (11.2-15.7); Immature Grans % 0.3; Lymphocytes % 22.8; MCHC 33.4 % (32.0-36.0); MCV 90 fL (80-95); MPV 11.2 fL (8.0-11.0); Monocytes % 9.6; Neutrophils % 65.9; Platelet Count 255 10^3/uL (130-400); RDW 12.3 % (11.7-14.6); RDW-SD 40.7 fL; WBC 6.14 10^3/uL (4.4-10.8)
[2023-11-08 21:35] LABS: ALT 32 U/L (14-59); AST 22 U/L (15-37); Alkaline Phosphatase 78 U/L (46-116); Anion Gap 8.2 mmol/L (3-11); BUN 26 mg/dL (7-18); Bilirubin, Total 0.4 mg/dL (0.2-1.0); CO2 29.8 mmol/L (21.0-32.0); Calcium 10.1 mg/dL (8.5-10.1); Chloride 104 mmol/L (98-107); Estimated GFR 60.23 (mL/min/1.73m2); Glucose 112 mg/dL (74-106); Potassium 5.4 mmol/L (3.5-5.1); Sodium 142 mmol/L (136-145); Total Protein 7.4 g/dL (6.4-8.2)
== END 2023-11-08 21:05 | disposition home or self-care (01) ==
LOC: NCHCN 21:04
PROVIDERS: PCP Nurse Practitioner Adult Health; Visit Provider Physician Assistant
DX: R10.32 Left lower quadrant pain (principal)
CPT/HCPCS: 80053; 85025

== ENCOUNTER → 2023-11-09 01:15 | Outpatient (CLI) | payer MEDICARE, SELFPAY ==
--- NOTE | 2023-11-09 07:45 | DI.US_ITS ---
Exam(s) US RENAL EXAM: US RENAL CLINICAL HISTORY: left flank pain,r10.9. TECHNIQUE: Lucas scale, color and spectral Doppler were used. COMPARISON: US RENAL ULTRASOUND(P) from 12/28/[address] ABDOMEN PELVIS W from 02/03/2019 FINDINGS: Renal size in cm: Right: 9.4. Left: 10. Echogenicity: Normal. Hydronephrosis: No. Cyst or mass: No. Nephrolithiasis: No. Other findings: None. Bladder:Normal. Ureteral jets: Right: Visualized and unremarkable. Left: Visualized and unremarkable. Prevoid vol:104 cc Postvoid vol:17 cc Renal color flow: Symmetric and within normal limits. IMPRESSION: No evidence of nephrolithiasis or obstructive uropathy sonographically. DATA REPOSITORY:
== END ==
PROVIDERS: PCP Nurse Practitioner Adult Health; Visit Provider Physician Assistant
DX: R10.9 Unspecified abdominal pain (principal)
CPT/HCPCS: 76770

== ENCOUNTER → 2023-11-20 09:17 | Outpatient (BNVA) | payer MEDICARE, SELFPAY | PROVIDERS: PCP Nurse Practitioner Adult Health; Referring Provider Nurse Practitioner Adult Health; Visit Provider Student in an Organized Health Care Education/Training Program | DX: M65.321 Trigger finger, right index finger (principal) | CPT/HCPCS: 99212 ==

== ENCOUNTER 2023-11-29 06:23 | Day surgery (SDC) | payer MEDICARE, SELFPAY ==
[2023-11-29 06:31] VITALS: BP 151/67; PULSE 76; RESP 16; TEMP 36.6; O2SAT 99
--- NOTE | 2023-11-29 07:22 | W.PM.DSUDISC ---
Date of service: 11/29/23 Time of Service: 07:22 Discharge Plan Disposition Patient Disposition: Home Condition: Good Discharge Details Reason For Visit: RIF Trigger Release Attending Provider: Pablo Pete Primary Care Provider: Karla Ricardo Home Meds and New Rx's Prescriptions: New acetaminophen 500 mg tablet 1,000 mg PO TID Qty: 90 0RF ibuprofen 600 mg tablet 600 mg PO TID PRN (Reason: pain) Qty: 90 0RF Continued fluticasone propionate [Flonase Allergy Relief] 50 mcg/actuation spray,suspension 2 spray JUSTA DAILY PRN (Reason: nasal congestion) Qty: 9.9 0RF Rx Instructions: administer into each nostril calcium carbonate-vitamin D3 [Caltrate with Vitamin D3] 600 mg-20 mcg (800 unit) tablet 1 tab PO DAILY meclizine 25 mg tablet 12.5 - 25 mg PO QID PRN (Reason: dizziness) Qty: 30 0RF valacyclovir [Valtrex] 1 gram tablet 1,000 mg PO TID Qty: 21 0RF Probiotic 1 EACH capsule, sprinkle 1 ea PO BID Joint Health 1 EACH tablet 1 ea PO DAILY Faye Pulse 1 tab PO DAILY Discontinued ibuprofen 600 mg tablet 600 mg PO Q6H PRN (Reason: pain and inflammation) Qty: 60 0RF Discharge Instructions Stand Alone Forms: Gi Archuleta (EVANGELINAU), Juan R Vanessa Finger Release Referrals: Pablo Pete MD [ [facility] STAFF PHYSICIAN] - 12/08/23 8:30 am Activity:: Activity as Tolerated Remove Dressings/Wound Care:: 48 hours Shower/Bathe:: 48 hours Diet:: As Tolerated Discharge Orders Discharge Orders: Discharge Order (Routine); Ordered 11/29/23 Ordered By: Pj Cook DS: Diagnosis Discharge Diagnosis (1) Trigger finger, right index finger: Status: Acute
[2023-11-29] MEDS: Sodium Bicarbonate 50 MEQ/50 ML VIAL (07:35)
[2023-11-29] MEDS: Lidocaine 1% Multi-Dose W/EPI 1/100,000 50 ML VIAL (07:35)
[2023-11-29 07:59] VITALS: BP 122/64; PULSE 69; RESP 16; TEMP 36.4; O2SAT 99
--- NOTE | 2023-11-29 08:03 | ROE_ITS ---
Date of service: 11/29/23 Time of Service: 07:30 Operative Note Operative Note DATE OF PROCEDURE: 11/29/23 PRE-OP DIAGNOSIS: Right Index Finger Trigger Finger POST-OP DIAGNOSIS: same PROCEDURE: Trigger Finger Release - Right Index Finger SURGEON: Pablo Pete ANESTHESIA TYPE: Local By Surgeon Refer to Anesthesia Record PATHOLOGY: none sent COMPLICATIONS: None Patient was transported to: same day Patient's condition: stable Indications: I have seen Kinga in clinic for symptoms of a trigger finger. The catching, clicking, locking, and pain limited function. The diagnosis of trigger finger was evident. The symptoms had not responded to conservative measures. I discussed trigger finger release with the patient. I reviewed the risks of the procedure to include, but not limited to, bleeding, infection, pain, stiffness, incomplete release, damage to nerves or vessels, continued catching, recurrence. Despite these risks, the patient elected to proceed. Findings: There was a tightened A1 mateo which was released. The flexor tendons were inspected and the patient was able to move the finger without any catching, clicking, or locking. Procedure Description: Kinga was greeted in the preoperative holding area where the correct side was identified and marked. The consent was reviewed with the patient and signed. All questions were answered. She was taken back to the operating room. The patient was placed into the supine position on the operating room table with the right arm on an arm board. All bony prominences were well padded. No prophylactic antibiotics were administered since this was a clean, elective hand surgical case. The [LATERA LITY] arm was then prepped with Chloraprep and draped in a standard fashion with stockinette and extremity drape. A timeout to confirm correct identity, side and site, procedure, allergies, anesthesia, and medical concerns was performed. The surgical site was marked as a longitudinal incision directly over the A1 mateo of the involved digit. This was confirmed with palpation during finger flexion. This area, overlying the metacarpal head, was then anesthetized with 1% Lidocaine. The patient tolerated this well and once the anesthetic had setup, the procedure began. A longitudinal incision was made through skin only, approximately 1cm. The deep tissues were dissected bluntly. Once the A1 mateo and flexor tendons were identified the soft tissue including neurovascular structures were retracted medially and laterally. There were no crossing structures over the A1 mateo. The proximal edge of the mateo was identified and the mateo was incised with tenotomy scissors. There was a release of the tendons once this was fully released. The tendons were then removed from the wound and inspected. Excess synovium was resected. The tendons were then returned and the patient was asked to move the finger into deep flexion and back to extension. There was no recreation of the pre-operative symptoms. The hand was then once more inspected for any A0 mateo or area of possible constriction. The wound was then irrigated and the skin was closed with a 4-0 Nylon. This was dressed with gauze and a Conform dressing. The patient tolerated the procedure well and was returned to the Same Day Surgery area in a stable condition suffering no known complication.
== END 2023-11-29 08:30 | disposition home or self-care (01) ==
PROVIDERS: PCP Nurse Practitioner Adult Health; Visit Provider Student in an Organized Health Care Education/Training Program
PROC: (CPT 26055; principal; 2023-11-29 07:30)
DX: M65.321 Trigger finger, right index finger (principal)
CPT/HCPCS: 26055; J2004

== ENCOUNTER → 2023-12-08 08:39 | Outpatient (BNVA) | payer MEDICARE, SELFPAY | PROVIDERS: PCP Nurse Practitioner Adult Health; Referring Provider Nurse Practitioner Adult Health | DX: Z47.89 Encounter for other orthopedic aftercare (principal); M79.641 Pain in right hand ==

== ENCOUNTER 2024-01-18 16:50 | Outpatient (CLI) | payer MEDICARE, SELFPAY ==
--- NOTE | 2024-01-18 16:45 | RT.EKG_ITS ---
APPROVED REPORT Exam: Resting ECG Reason for Exam: chest discomfort Patient Location: O HR:59 bpm ECG Measurements Heart Rate 59 AXIS TN 141 P 52 QRSd 89 QRS 52 QT 411 T 23 QTc 408 Conclusion Sinus rhythm...normal P axis, V-rate 50- 99 Probable left atrial enlargement...P >50mS, <-0.10mV V1 Otherwise normal ECG
== END 2024-01-18 16:51 | disposition home or self-care (01) ==
LOC: DI.CM 16:50
PROVIDERS: PCP Nurse Practitioner Adult Health; Visit Provider Physician Assistant
DX: R07.89 Other chest pain (principal)
CPT/HCPCS: 93010

== ENCOUNTER → 2024-02-06 02:13 | Outpatient (CLI) | payer MEDICARE, SELFPAY ==
--- NOTE | 2024-02-06 07:15 | DI.US_ITS ---
Exam(s) US ABDOMEN EXAM: US ABDOMEN CLINICAL HISTORY: ? mass,epigastric pain, r10.13 TECHNIQUE: Ultrasound of complete upper abdomen performed using standard protocol. COMPARISON: CT CT ABDOMEN PELVIS W from 02/03/2019 US US RENAL from 11/09/2023 FINDINGS: There is no ascites evident. LIVER: There are no hepatic lesions evident nor obvious dilatation of intrahepatic ducts. GALLBLADDER/BILIARY: The gallbladder surgically absent The common hepatic duct isnot dilated, measuring 6mm at the level of ifrah hepatis. PANCREAS: There is no evidence of pancreatic mass nor dilatation of the pancreatic duct. SPLEEN: The spleen is not enlarged and there are no intrasplenic lesions evident. KIDNEYS:Kidneys exhibit normal size with no evidence of solid mass, calculus, nor hydronephrosis. No cortical cysts evident. ABDOMINAL AORTA: There is no evidence of abdominal aortic aneurysm. IVC: Normal diameter where visualized. OTHER: Cine loop images of the anterior abdominal wall area of concern does not reveal evidence of a hernia sac. IMPRESSION: 1. The gallbladder surgically absent. The biliary tree is not dilated. 2. No other significant ultrasound findings in the upper abdomen. 3. No evidence of anterior abdominal wall hernia DATA REPOSITORY:
== END ==
PROVIDERS: PCP Nurse Practitioner Adult Health; Visit Provider Nurse Practitioner Adult Health
DX: R10.13 Epigastric pain (principal); K21.9 Gastro-esophageal reflux disease without esophagitis; Z90.49 Acquired absence of other specified parts of digestive tract
CPT/HCPCS: 76700

== ENCOUNTER 2024-02-22 08:07 | Outpatient (RCR) | payer MEDICARE, SELFPAY ==
--- NOTE | 2024-02-22 13:00 | HOLTER_ITS ---
APPROVED REPORT Conclusion This is a 48 hour Holter monitor Rhythm throughout was sinus. Average heart rate was 69. Minimum wass 50, maximum 112. There were very rare isolated atrial and ventricular ectopic beats. There was no atrial fibrillation, no high grade AV block , no pauses greater than 3 seconds
== END 2024-03-05 23:59 | disposition home or self-care (01) ==
LOC: CARDOPNVT 08:07
PROVIDERS: PCP Nurse Practitioner Adult Health; Visit Provider Nurse Practitioner Adult Health
DX: R00.2 Palpitations (principal)
CPT/HCPCS: 93227; 93225

== ENCOUNTER 2024-05-14 16:01 | Outpatient (REF) | payer MEDICARE, SELFPAY | END 2024-05-14 16:02 | disposition home or self-care (01) | LOC: LBN 16:01 | PROVIDERS: PCP Nurse Practitioner Adult Health; Visit Provider Nurse Practitioner | DX: R30.0 Dysuria (principal) | CPT/HCPCS: 87086 ==

== ENCOUNTER → 2024-05-30 00:06 | Outpatient (CLI) | payer MEDICARE, SELFPAY ==
--- NOTE | 2024-05-30 08:33 | DI.MAMMO_ITS ---
Exam(s) MAMMO SCREENING EXAM: MAMMO SCREENING CLINICAL HISTORY: screening,Z12.39 TECHNIQUE: Bilateral full field digital CC and MLO mammographic images were obtained with 3D tomosyn thesis and utilizing computer aided detection (CAD). COMPARISON: Available for comparison. FINDINGS: Masses/Architectural Distortion: None seen. Microcalcifications: No suspicious pleomorphic-type are seen. Skin Thickening/Nipple Retraction: None. IMPRESSION: 1. No significant interval change with no specific features of malignancy noted. 2. Unless there is more urgent need, screening mammography is recommended, as per [employer] guidelines. BI-RADS Category 1 - Negative Breast Density - Category C - Heterogeneously dense Breast density category C or D implies that the patient has dense breast tissue. Dense breast tissue is very common and is not abnormal but dense breast tissue can make it harder to find cancer on a ma mmogram. Also, dense breast tissue may increase their breast cancer risk. This information about the result of the mammogram report was provided to the patient to raise their awareness. Use this report when you speak with the patient about their risks for breast cancer, which includes their family hist ory. At that time, you may recommend for more screening tests (Ultrasound or MRI) as they might be us eful based on their risk. A negative radiographic report should not delay biopsy if a dominant or clinically suspicious mass is present. Up to ten percent of cancers are not identified on mammography. A negative report may reinforce clinical impression. Adenosis and dense breasts may obscure an underlying neoplasm. False positive reports average 6 to 10%. Patient will receive a letter notifying them of these results.
== END ==
PROVIDERS: PCP Nurse Practitioner Adult Health; Visit Provider Nurse Practitioner Adult Health
DX: Z12.39 Encounter for other screening for malignant neoplasm of breast (principal); Z12.31 Encounter for screening mammogram for malignant neoplasm of breast; R92.333 Mammographic heterogeneous density, bilateral breasts
CPT/HCPCS: 77063; 77067

== ENCOUNTER 2024-07-01 03:04 | Outpatient (CLI) | payer MEDICARE, SELFPAY ==
[2024-07-01 09:02] LABS: ALT 32 U/L (14-59); AST 22 U/L (15-37); Albumin 3.5 g/dL (3.4-5.0); Alkaline Phosphatase 80 U/L (46-116); Anion Gap 6.8 mmol/L (3-11); BUN 19 mg/dL (7-18); Bilirubin, Total 0.58 mg/dL (0.2-1.0); CO2 30.2 mmol/L (21.0-32.0); Calcium 9.1 mg/dL (8.5-10.1); Calculated LDL 138 mg/dL (<100); Chloride 107 mmol/L (98-107); Cholesterol 252 mg/dL (<200); Estimated GFR 59.86 (mL/min/1.73m2); Glucose 104 mg/dL (74-106); HDL Cholesterol 82 mg/dL (40-60); Potassium 4.5 mmol/L (3.5-5.1); Sodium 144 mmol/L (136-145); Total Protein 6.6 g/dL (6.4-8.2); Triglyceride 164 mg/dL (<150); Vitamin D 25 Total 65.9 ng/mL (30-100)
== END 2024-07-01 03:05 | disposition home or self-care (01) ==
LOC: LBO 03:04
PROVIDERS: Absent Provider Nurse Practitioner Adult Health; PCP Nurse Practitioner Adult Health; Referring Provider Nurse Practitioner Adult Health; Visit Provider Nurse Practitioner Adult Health
DX: K21.9 Gastro-esophageal reflux disease without esophagitis (principal); M81.0 Age-related osteoporosis without current pathological fracture; R73.01 Impaired fasting glucose; Z83.3 Family history of diabetes mellitus; Z80.0 Family history of malignant neoplasm of digestive organs; E78.5 Hyperlipidemia, unspecified
CPT/HCPCS: 36415; 80053; 80061; 82306

== ENCOUNTER 2024-08-05 02:02 | Outpatient (CLI) | payer MEDICARE, SELFPAY ==
--- NOTE | 2024-08-05 07:45 | DI.DEXA_ITS ---
Exam(s) XR DEXA BONE DENSITY W/WO SOLE EXAM: XR DEXA BONE DENSITY W/WO SOLE CLINICAL HISTORY: Interval 5y F/U osteopenia,osteoporosis in postmenopausal woman,z78.0 TECHNIQUE: COMPARISON: DX XR DEXA BONE DENSITY W/WO SOLE from 06/11/2019 FINDINGS: Lateral Spine Image: Unremarkable. No compression deformities identified. Left hip: Total T-Score: -1.8. Compares to -1.9 on the prior examination. Total Z-Score: -0.2 T- and Z-scores: Findings are consistent with osteopenia. There is no evidence of osteoporosis. Lumbar Spine: Total T-Score: -1.7. This compares to -1.7 on the prior examination. Total Z-Score: 0.5 T- and Z-scores: This is consistent with osteopenia. There is no evidence of osteoporosis. Left forearm: Total T-score:-3.2. This compares to -3.0 on the prior examination. Total Z-score:-1.0 T and Z-score is: This is consistent with osteoporosis. IMPRESSION: Osteoporosis is again seen in the left forearm.
== END 2024-08-05 02:22 ==
LOC: DI 02:02
PROVIDERS: PCP Nurse Practitioner Adult Health; Visit Provider Nurse Practitioner Adult Health
DX: M81.0 Age-related osteoporosis without current pathological fracture (principal); Z78.0 Asymptomatic menopausal state
CPT/HCPCS: 77080

== ENCOUNTER 2024-11-11 14:54 | Outpatient (REF) | payer MEDICARE, SELFPAY | END 2024-11-11 14:55 | disposition home or self-care (01) | LOC: LBN 14:54 | PROVIDERS: PCP Nurse Practitioner Adult Health; Visit Provider Family Medicine | DX: R30.0 Dysuria (principal); Z87.440 Personal history of urinary (tract) infections; R39.15 Urgency of urination; N39.0 Urinary tract infection, site not specified | CPT/HCPCS: 87086 ==

== ENCOUNTER → 2025-01-08 09:18 | Outpatient (BNVA) | payer MEDICARE, SELFPAY | PROVIDERS: PCP Nurse Practitioner Adult Health; Referring Provider Nurse Practitioner Adult Health; Visit Provider Podiatrist | DX: L84 Corns and callosities (principal); D17.9 Benign lipomatous neoplasm, unspecified; M72.2 Plantar fascial fibromatosis; M79.672 Pain in left foot; M20.22 Hallux rigidus, left foot | CPT/HCPCS: 20550; J0702; J1100 ==

== ENCOUNTER → 2025-02-19 09:19 | Outpatient (BNVA) | payer MEDICARE, SELFPAY | PROVIDERS: PCP Nurse Practitioner Adult Health; Referring Provider Nurse Practitioner Adult Health; Visit Provider Podiatrist | DX: L84 Corns and callosities (principal); D17.39 Benign lipomatous neoplasm of skin and subcutaneous tissue of other sites; M72.2 Plantar fascial fibromatosis; M79.672 Pain in left foot | CPT/HCPCS: 99213 ==

== ENCOUNTER 2025-06-02 02:13 | Outpatient (CLI) | payer MEDICARE, SELFPAY ==
--- NOTE | 2025-06-02 07:30 | DI.MAMMO_ITS ---
Exam(s) MAMMO SCREENING EXAM: MAMMO SCREENING CLINICAL HISTORY: screening, Z12.39. TECHNIQUE: Bilateral full field digital CC and MLO mammographic images were obtained with 3D tomosynthesis and utilizing computer aided detection (CAD). COMPARISON: Prior mammograms were reviewed. FINDINGS: There has been no significant change in the appearance and distribution of the fibroglandular tissue. There are no new spiculated masses nor malignant appearing microcalcification groups. There is no significant architectural distortion nor skin thickening-retraction. IMPRESSION: No radiographic evidence of malignancy. BI-RADS Category 1 - Negative Breast Density - Category C - The breast are heterogeneously dense, which may obscure small masses. Breast density Category C or D implies that the patient has dense breast tissue. Dense breast tissue can make it harder to find cancer on a mammogram. Dense breast tissue is also associated with an increased risk of breast cancer. This information about the result of the mammogram report was provided to the patient to raise their awareness. Use this report when you speak with the patient about their risks for breast cancer, which includes their family history. At that time, you may recommend additional screening tests (Ultrasound or MRI) as these tests may add significant information. A negative radiographic report should not delay biopsy if a dominant or clinically suspicious mass is present. Up to ten percent of cancers are not identified on mammography. A negative report may reinforce clinical impression. Adenosis and dense breasts may obscure an underlying neoplasm. False positive reports average 6 to 10%. Patient will receive a letter notifying them of these results.
== END 2025-06-02 02:33 ==
LOC: DI 02:13
PROVIDERS: PCP Nurse Practitioner Adult Health; Visit Provider Nurse Practitioner Adult Health
DX: Z12.31 Encounter for screening mammogram for malignant neoplasm of breast (principal); R92.333 Mammographic heterogeneous density, bilateral breasts
CPT/HCPCS: 77063; 77067

== ENCOUNTER 2025-07-17 04:00 | Outpatient (CLI) | payer MEDICARE, SELFPAY ==
[2025-07-17 09:27] LABS: ALT 26 U/L (14-59); AST 18 U/L (15-37); Albumin 3.8 g/dL (3.4-5.0); Alkaline Phosphatase 65 U/L (46-116); Anion Gap 7.2 mmol/L (3-11); BUN 25 mg/dL (7-18); Bilirubin, Total 0.5 mg/dL (0.2-1.0); CO2 27.8 mmol/L (21.0-32.0); Calcium 9.3 mg/dL (8.5-10.1); Calculated LDL 135 mg/dL (<100); Chloride 105 mmol/L (98-107); Cholesterol 238 mg/dL (<200); Estimated GFR 53.06 (mL/min/1.73m2); Glucose 97 mg/dL (74-106); HDL Cholesterol 76 mg/dL (>or=50); Potassium 4.0 mmol/L (3.5-5.1); Sodium 140 mmol/L (136-145); Total Protein 6.8 g/dL (6.4-8.2); Triglyceride 138 mg/dL (<150); Vitamin D 25 Total 68 ng/mL (30-100)
== END 2025-07-17 04:01 | disposition home or self-care (01) ==
PROVIDERS: PCP Nurse Practitioner Adult Health; Referring Provider Nurse Practitioner Adult Health; Visit Provider Nurse Practitioner Adult Health
DX: E78.5 Hyperlipidemia, unspecified (principal); R03.0 Elevated blood-pressure reading, without diagnosis of hypertension; Z83.3 Family history of diabetes mellitus; R73.01 Impaired fasting glucose; K21.9 Gastro-esophageal reflux disease without esophagitis; R94.4 Abnormal results of kidney function studies
CPT/HCPCS: 36415; 80053; 80061; 82306

== ENCOUNTER 2025-08-27 01:35 | Outpatient (CLI) | payer MEDICARE, SELFPAY ==
[2025-09-01 17:21] LABS: Apolipoprotein B, Serum 96 mg/dL (48-124); Beta VLDL Cholesterol Not Detected mg/dL (<15); Beta VLDL Triglycerides Not Detected mg/dL (<15); Cholesterol, Total, CDC 236 mg/dL; Chylomicron Cholesterol Not Detected; Chylomicron Triglycerides Not Detected; HDL Cholesterol, CDC 66 mg/dL (>=50); LpX Not detected; Triglycerides, CDC 101 mg/dL; VLDL Triglycerides 43 mg/dL (<120)
== END 2025-08-27 01:36 | disposition home or self-care (01) ==
LOC: LBO 01:35
PROVIDERS: PCP Nurse Practitioner Adult Health; Referring Provider Nurse Practitioner Adult Health; Visit Provider Nurse Practitioner Adult Health
DX: E78.5 Hyperlipidemia, unspecified (principal)
CPT/HCPCS: 36415; 80061; 83695; 82172; 82664

== ENCOUNTER → 2025-10-25 14:05 | Outpatient (CLI) | payer MEDICARE, SELFPAY ==
--- NOTE | 2025-10-25 14:00 | DI.RAD_ITS ---
Exam(s) XR CHEST 2V PA LATERAL EXAM: XR CHEST 2V PA LATERAL CLINICAL HISTORY: eval pathology, R05.9 cough unspecified TECHNIQUE: 2D digital imaging was performed of the chest. Two images were obtained. PA and lateral views were obtained. COMPARISON: CR CHEST 2 VIEWS PA,LAT from 06/08/[address] ABDOMEN PELVIS W from 02/03/2019 FINDINGS: MEDIASTINUM: Normal. HEART: Normal. PULMONARY VASCULATURE: Normal. LUNGS: There is what appears to be a cystic focus in the posterior aspect of the right lung on the lateral view. There are no focal consolidating infiltrate seen. The lungs appear hyperinflated suggesting underlying COPD. Bronchiectatic changes are seen in the medial basilar segment of the right lobe best appreciated on the PA view. These are also visualized on the CT scan from 02/03/2019. PLEURAL SPACE: No pleural effusion or pneumothorax. BONE:Within normal limits for the patient's age. OTHER FINDINGS:Normal. IMPRESSION: 1. No acute pulmonary findings. 2. The preliminary [facility] report was reviewed. DATA REPOSITORY: RADIATION DOSE DELIVERED:
--- NOTE | 2025-10-25 15:04 | DI.[facility]_ITS ---
PROCEDURE INFORMATION: Exam: XR Chest Exam date and time: 10/25/2025 2:14 PM Age: 75 years old Clinical indication: Cough; Additional info: Sickness x4 days TECHNIQUE: Imaging protocol: Radiologic exam of the chest. Views: 2 views. COMPARISON: CT ABDOMEN PELVIS W 02/03/2019 11:00 AM FINDINGS: Lungs: There are some minimal increased markings at the right lung base. There appears to be a prominent cystic focus in the right lung, aerated. When compared to prior CT exam, there are bronchiectatic changes at the right lung base. The lungs are overall hyperaerated and hyperlucent, presumed COPD. Pleural spaces: Unremarkable. No pleural effusion. No pneumothorax. Heart/Mediastinum: Unremarkable. No cardiomegaly. Bones/joints: Unremarkable. IMPRESSION: Coarse right lung base markings, likely bronchiectasis seen on prior CT. Mild COPD. Dictated and Authenticated by: Radha Rosa MD. Orderin Sparkle Pruitt MD
== END ==
LOC: DI 14:05
PROVIDERS: PCP Nurse Practitioner Adult Health; Visit Provider Nurse Practitioner Family
DX: R05.9 Cough, unspecified (principal)
CPT/HCPCS: 71046